=== PATIENT | female | born 1990 | race Caucasian/White ===

== ENCOUNTER → 2016-12-31 | Outpatient (CLI) | payer OTHER ==
[2017-01-03 02:55] LABS: CHLAMYDIA TRACH RNA*** NOT DETECTED (NOT DETECTED); GC (NEIS GONORRHOEAE)RNA** NOT DETECTED (NOT DETECTED)
== END | disposition home or self-care (01) ==
LOC: C.LABSPEC 17:27
PROVIDERS: ATTEND Physician Assistant
DX: Z01.419 Encounter for gynecological examination (general) (routine) without abnormal findings (principal)

== ENCOUNTER → 2016-12-31 | Outpatient (CLI) | payer OTHER | END | disposition home or self-care (01) | LOC: C.PAPS 09:51 | PROVIDERS: ATTEND Physician Assistant | DX: Z12.4 Encounter for screening for malignant neoplasm of cervix (principal) ==

== ENCOUNTER 2024-02-09 01:43 | Inpatient (IN) ==
--- NOTE | 2024-02-09 02:12 | Emergency Department Note ---
History of Present Illness General Chief complaint: Kidney Stone Stated complaint: KIDNEY STONES Time Seen by Provider: 02/09/24 02:06 History of Present Illness Maximum Pain Intensity: 8 This 33-year-old with a history of kidney stones and follows with Dr. Thao from urology presents ER complaining of severe left flank pain. She took Tylenol with no relief of symptoms. She had stents in the past. Patient denies chest pain, dyspnea, fevers, abdominal pain, urinary symptoms, rash. 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 Hx of congenital heart disease (1994) History of postoperative nausea and vomiting Ureteral calculus, left Surgical History S/P nasal surgery (2013) S/P wisdom tooth extraction (2016) S/P surgery for complex congenital heart disease (1994) Family History Grandmother (Maternal) Breast cancer Aunt Breast cancer Denies family history of Ovarian cancer Colorectal cancer Uterine cancer Social History Smoking Status: Never smoker Second Hand Exposure: No; Do You Dip or Chew Tobacco: No; Hx Alcohol Use: Yes Hx Substance Use: No Preferred Language: Bengali Communication Ability: Effective Pst Manager Required: No Beliefs That Will Affect Care: None Current Living Situation: Spouse Feels Safe at Home: Yes Assistive Devices: Glasses Review of Systems A total of 10 systems reviewed and were otherwise negative Physical Exam Vital Signs Vital Signs - 24 hr 02/09/24 01:43 02/09/24 01:53 Temperature 36.6 C Temperature Source Temporal Artery Scan Pulse Rate 77 Respiratory Effort / Characteristics Non-Labored Respiratory Depth Normal Blood Pressure 143/86 H Blood Pressure Mean 105 Pulse Oximetry 99 Oxygen Delivery Method Room Air Sepsis Recent Fever Within 48 Hours No Sepsis New/Unexplained Change in Mental Status No Sepsis Action Taken by Nursing No Action Required VITALS: Vitals are noted on the nurse's note and reviewed by myself. Vital signs stable. GENERAL: Pleasant female, in no acute distress, nondiaphoretic, well-developed well-nourished. SKIN: Capillary reflex less than 2 seconds. HEENT: Normocephalic. PERRLA. EOMI. Nares patent. Mucous membranes moist. Neck is supple without nuchal rigidity. HEART: Regular rate and rhythm LUNGS: Clear to auscultation bilaterally without wheezes, rales or rhonchi. No retractions or accessory muscle use. ABDOMEN: Positive bowel sounds x 4. Normal tympanic percussion. Soft, nontender, without masses or organomegaly. Li sign negative. No guarding or rebound tenderness. no CVA tenderness MUSCULOSKELETAL: No gross musculoskeletal defects. NEURO: Patient was alert and oriented to person place and time. No focal neurological deficits. Course Administered Medications Discontinued Medications Ceftriaxone Sodium (Rocephin) 2,000 mg in 50 mls @ 100 mls/hr IV NOW STA Stop: 02/09/24 03:12 Last Admin: 02/09/24 02:50 Dose: 100 mls/hr Documented By: SHERLY Ketorolac Tromethamine (Ketorolac Tromethamine 15 Mg/Ml Vial) 10 mg IV NOW STA Stop: 02/09/24 02:08 Last Admin: 02/09/24 02:18 Dose: 10 mg Documented By: SHERLY Ondansetron HCl (Ondansetron Inj 2 Mg/Ml 2 Ml Vial) 4 mg IV NOW STA Stop: 02/09/24 02:08 Last Admin: 02/09/24 02:18 Dose: 4 mg Documented By: SHERLY Medical Decision Making Medical Records Attestation: I reviewed the patient's medical records. Home Medications Current Medication List: was personally reviewed by me Laboratory Data Attestation: I reviewed the patient's lab results. 02/09/24 02:15 02/09/24 02:15 Lab Results 02/09/24 02/09/24 Range/Units 02:15 03:15 WBC 7.44 (4.8-10.8) K/ul RBC 5.06 (4.20-5.40) M/uL Hgb 14.9 (12.0-16.0) g/dl Hct 45.1 (37.0-47.0) % MCV 89.1 (80.0-100.0) fL MCH 29.4 (25.0-34.0) pg MCHC 33.0 (32.0-36.0) g/dL RDW Std Deviation 40.7 (36.4-46.3) fL RDW Coeff of Sunshine 12.5 (11.5-14.5) % Plt Count 312 (130-400) K/uL MPV 10.3 (9.4-12.4) fL Immature Gran % (Auto) 0.3 % Neut % (Auto) 76.9 % Lymph % (Auto) 15.7 % Wilkin % (Auto) 4.8 % Eos % (Auto) 1.9 % Baso % (Auto) 0.4 % Neut # (Auto) 5.72 (1.40-6.50) K/uL Lymph # (Auto) 1.17 L (1.20-3.40) K/uL Wilkin # (Auto) 0.36 (0.11-0.59) K/uL Eos # (Auto) 0.14 (0.00-0.50) K/uL Baso # (Auto) 0.03 (0.00-0.20) K/uL Immature Gran # (Auto) 0.02 (0.01-0.20) K/uL Sodium 137 (136-145) mmol/L Potassium 3.9 (3.5-5.1) mmol/L Chloride 106 (98-107) mmol/L Carbon Dioxide 25 (21-32) mmol/L Anion Gap 6 (3-11) BUN 14 (6-23) mg/dl Creatinine 0.66 (0.6-1.2) mg/dl Est Cr Clr Drug Dosing 88.6 ml/min eGFR 120.20 BUN/Creatinine Ratio 21.2 H (10-20) Glucose 151 H (70-99(Fasting)) mg/dl Lactate 1.1 (0.4-2.0) mmol/L Calcium 9.0 (8.6-10.3) mg/dl Total Bilirubin 0.3 (0.2-1.0) mg/dl AST 14 (13-39) U/L ALT 11 (7-52) U/L Alkaline Phosphatase 92 (34-104) U/L Total Protein 7.6 (6.0-8.3) gm/dl Albumin 4.4 (3.4-5.0) gm/dl Globulin 3.2 (2.5-4.0) gm/dl Albumin/Globulin Ratio 1.4 (0.9-2) Urine Color Yellow Urine Appearance Turbid A (Clear) Urine pH 5.5 (4.5-7.5) Ur Specific [place] 1.031 H (1.000-1.030) Urine Protein 1+ H (Negative) Urine Glucose (UA) Negative (Negative) Urine Ketones Trace H (Negative) Urine Blood 3+ H (Negative) Urine Nitrite Negative (Negative) Urine Bilirubin Negative (Negative) Urine Urobilinogen Negative (Negative) Ur Leukocyte Esterase 1+ H (Negative) Urine WBC (Auto) 21-50 H (0-5) /hpf Urine RBC (Auto) >20 H (0-2) /hpf U Hyaline Cast (Auto) 6-10 H (0-2) /lpf U Epithel Cells (Auto) 11-20 H (0-2) /hpf Urine Bacteria (Auto) 4+ H (None Seen) Calcium Oxalate Crystal Present A (None Prsent) POC Ur Test NEG (NEG) Imaging Data Attestation: I personally reviewed and interpreted this imaging study as follows: Radiologist's Impression: Abdomen/Pelvis CT 02/09/24 02:07 EXAM: CT abd pelvis wo con CLINICAL HISTORY: FLANK PAIN APPENDIX PRESENT -PREG EK INPATIENT TECHNIQUE: Non-contrast CT of the abdomen and pelvis was performed, with the following protocol: axial images, and reconstructed coronal and sagittal images. No intravenous contrast was administered. One of the following dose reduction techniques was utilized for this exam: Automated exposure control, adjustment of the mA and/or kV according to patient size, and use of iterative reconstruction. COMPARISON: 01/07/2024. FINDINGS: Abdomen: Liver: Normal in size, shape, and density. No focal lesions, cysts, or masses were identified. Gallbladder and Biliary System: The gallbladder is normal in size and shape. No wall thickening, pericholecystic fluid, or gallstones were identified. Pancreas: Pancreatic head, body, and tail are visualized and appear normal in size and density. No pancreatic masses or calcifications were noted. Spleen: Normal in size, shape, and density. No splenic lesions or masses were identified. Kidneys and Adrenal Glands: Moderate left kidney and upper ureter hydronephrosis due to a calculus measuring about 4mm lodged in the left upper-mid ureter junction with adjacent reaction ureter wall thickening. The left kidney is normal in size, shape, and position. Cortical thickness is within normal limits The right kidney is normal in size, shape, and position. Cortical thickness is within normal limits. No renal calculi or hydronephrosis. Adrenal glands are unremarkable. Appendix: Not seen. Pelvis: Urinary Bladder: Normal in contour and wall thickness. intraluminal lesions. A few tiny gravels were noted adjacent to the left ureter orifice Uterus: Normal in size and contour. No masses or abnormal thickening. Ovaries: Not well visualized but no gross abnormalities noted. Vagina: Normal in contour and wall thickness. Cervix: No evidence of mass or abnormal thickening. 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 No lymphadenopathy was noted. Bowel: The visualized bowel loops are normal in caliber and appearance. No evidence of bowel obstruction or wall thickening. The lower thorax: Cardiomegaly was noted Dilation of the azygos vein. Bones and Soft Tissues: Pelvic bones and soft tissues are unremarkable. No fractures or abnormal masses were identified. IMPRESSION: 1. Moderate left kidney and upper ureter hydronephrosis due to a calculus measuring about 4mm lodged in the left upper-mid ureter junction with adjacent reaction ureter wall thickening. (New findings in comparison with CT 01/07/2024) 2. A few tiny gravels were noted adjacent to the left ureter orifice in the UB. 3. The rest of the findings are stable in comparison with CT 01/07/2024 4. 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 [facility] ER was called at [phone] at 2:24 AM ROLL EDGE STITCHER HAND, 02/09/2024, and Nurse Ivone was informed regarding the presence of Significant Medical Findings on this report. Electronically signed by Amadou Sagastume 02-09-2024 03:32 AM MDM Narrative Prior records/ancillary studies reviewed. Triage Nursing notes reviewed. Additional history obtained from the family. The patient's history was concerning for flank pain. Differential diagnosis: Etiologies such as renal colic, appendicitis, diverticulitis, mesenteric ischemia, aortic pathology, infections, inflammatory bowel disease, PUD, biliary pathology, UTI, as well as others were entertained. Physical examination findings: As above. ER treatment provided: Toradol and Zofran were ordered Rocephin was ordered for UTI On reassessment the patient felt better. Diagnostic interpretation by me: The labs Independently Interpreted by myself revealed hyperglycemia without DKA urinalysis revealed concerns for UTI. Prior cultures were reviewed. neg hcg No worrisome leukocytosis neg lactic Imaging studies: CT was reviewed and read by radiology as above Consultation: A consultation was placed with the hospitalist. The case was discussed and diagnostics were reviewed. The patient was evaluated in the ER for further treatment. Urology was consulted and did evaluate the patient. The case was discussed. It appears that the patient has a kidney stone with an infected urine. Patient was started on antibiotics. Medicine and Urology were consulted and the case was discussed. She will be admitted to the medical service. By the evaluation outlined above emergent etiologies such as appendicitis, diverticulitis, mesenteric ischemia, aortic pathology, inflammatory bowel disease, PUD, biliary pathology, as well as others were deemed relatively unlikely. The pt informed about the findings as listed above. All questions were answered and pleased with the treatment. The chart was completed utilizing [employer] Speech voice recognition software. Grammatical errors, random word insertions, pronoun errors, and incomplete sentences are an occassional consequence of this system due to software limitations, ambient noise, and hardware issues. Any formal questions or concerns about the content, text, or information contained within the body of this dictation should be directly addressed to the physician assistant professor of spanish for clarification. Impression & Plan Renal colic on left side, Ureterolithiasis, Acute UTI Discharge Plan Visit Data Chief Complaint: Kidney Stone Stated Complaint: KIDNEY STONES ED Provider: Nadia Kee ED Midlevel Provider: Guillermina Patel Discharge Problem: Renal colic on left side, Ureterolithiasis, Acute UTI Patient Disposition: Admitted As Inpatient Condition: Good Discharge Instructions Krames/Other Patient Handouts: ED [facility] Kidney Stone Activity Restrictions/Additional Instructions: DO NOT drive, drink alcohol, operate machinery, or perform dangerous activities today. You were given medications in the ER that can affect your ability to safely function or operate a vehicle. Oxycodone Immediate Release (OxyIR) 5mg: Take 1 pill every four hours for pain. Avoid alcohol, operating machinery or dangerous equipment, working on ladders or roofs, DRIVING, or situations where being under the influence may be dangerous. It is recommended to use an [id number]-pwe-[id number] stool softener such as Colace, 100mg twice daily while taking this medication to avoid constipation. Zofran 4 mg: Take one every six hours as needed for nausea. Avoid alcohol, operating machinery or dangerous equipment, working on ladders or roofs, DRIVING, or situations where being under the influence may be dangerous. Ibuprofen(Motrin, Advil) may be used for fever or pain. Use 400mg every six hours as needed. Take with food. Avoid using more than 1600mg in a 24 hour period. Do not use 1600mg per day for more than three consecutive days without physician direction. Prolonged inappropriate use can lead to stomach upset or ulcers. This medication can be taken if you need to drive, work, or perform activities which may be dangerous when taking narcotic pain medication. (AND/OR) Acetaminophen(Tylenol) may be used for fever or pain. Use 1000mg every six hours as needed. Avoid using more than 3000mg in a 24 hour period. This medication can be taken if you need to drive, work, or perform activities which may be dangerous when taking narcotic pain medication. Flomax 0.4 mg: Take one tablet daily until the stone passes. This can cause hypotension. Take this at night. Strain your urine and collect all the stones or debris for the urologists. Rest and avoid strenuous activity until your stone passes and symptoms resolve. Drink plenty of fluids. Continue current medications. Return to the ER for worsening abdominal or back pain, vomiting, fevers, passing out, or as needed. Follow up with urology in 2-3 days, call for an appointment. Forms Stand Alone Forms: Work/School Release (ED), Important Visit Information Prescriptions Prescriptions: No Action No Known Home Medications Referrals Referrals: PCP,NO [Primary Care Provider] -
[2024-02-09] MEDS: ONDANSETRON INJ 2 MG/ML 2 ML VIAL IV STA (02:18)
[2024-02-09] MEDS: KETOROLAC TROMETHAMINE 15 MG/ML VIAL IV STA (02:18)
[2024-02-09 02:34] LABS: Basophils # (auto) 0.03 K/uL (0.00-0.20); Basophils % (auto) 0.4 %; Eosinophils # (auto) 0.14 K/uL (0.00-0.50); Eosinophils % (auto) 1.9 %; Hematocrit (blood only) 45.1 % (37.0-47.0); Hemoglobin 14.9 g/dl (12.0-16.0); Immature Granulocytes # (auto) 0.02 K/uL (0.01-0.20); Immature Granulocytes % (auto) 0.3 %; Lymphocytes # (auto) 1.17 K/uL (1.20-3.40); Lymphocytes % (auto) 15.7 %; Mean Corpuscular Hemoglobin 29.4 pg (25.0-34.0); Mean Corpuscular Volume 89.1 fL (80.0-100.0); Mean Platelet Volume 10.3 fL (9.4-12.4); Monocytes # (auto) 0.36 K/uL (0.11-0.59); Monocytes % (auto) 4.8 %; Neutrophils # (auto) 5.72 K/uL (1.40-6.50); Neutrophils % (auto) 76.9 %; Platelet Count 312 K/uL (130-400); RDW Coefficient of Variation 12.5 % (11.5-14.5); RDW Standard Deviation 40.7 fL (36.4-46.3); Red Blood Count 5.06 M/uL (4.20-5.40); White Blood Count 7.44 K/ul (4.8-10.8)
[2024-02-09 02:42] LABS: Appearance Urine Turbid (Clear); Bacteria Urine Automated 4+ (None Seen); Bilirubin Urine Negative (Negative); Blood Urine 3+ (Negative); Calcium Oxalate Crystals Urine Present (None Prsent); Color Urine Yellow; Glucose Urine UA Negative (Negative); Ketones Urine Trace (Negative); Leukocyte Esterase Urine 1+ (Negative); Nitrite Urine Negative (Negative); Protein Urine 1+ (Negative); RBC Urine Automated >20 /hpf (0-2); Specific Gravity Urine 1.031 (1.000-1.030); Urobilinogen Urine Negative (Negative); WBC Urine Automated 21-50 /hpf (0-5); pH Urine 5.5 (4.5-7.5)
[2024-02-09 02:50] LABS: Albumin Globulin Ratio 1.4 (0.9-2); Albumin Level 4.4 gm/dl (3.4-5.0); BUN Creatinine Ratio 21.2 (10-20); Bilirubin,Total 0.3 mg/dl (0.2-1.0); Creatinine Clr Calc Pharmacy 88.6 ml/min; Globulin 3.2 gm/dl (2.5-4.0); Potassium 3.9 mmol/L (3.5-5.1); Total Protein 7.6 gm/dl (6.0-8.3)
[2024-02-09] MEDS: cefTRIAXone SODIUM 2,000 MG/50 ML BAG IV STA (02:50)
--- NOTE | 2024-02-09 03:32 | CT Scan Report ---
EXAM: CT abd pelvis wo con CLINICAL HISTORY: FLANK PAIN APPENDIX PRESENT -PREG EK INPATIENT TECHNIQUE: Non-contrast CT of the abdomen and pelvis was performed, with the following protocol: axial images, and reconstructed coronal and sagittal images. No intravenous contrast was administered. One of the following dose reduction techniques was utilized for this exam: Automated exposure control, adjustment of the mA and/or kV according to patient size, and use of iterative reconstruction. COMPARISON: 01/07/2024. FINDINGS: Abdomen: Liver: Normal in size, shape, and density. No focal lesions, cysts, or masses were identified. Gallbladder and Biliary System: The gallbladder is normal in size and shape. No wall thickening, pericholecystic fluid, or gallstones were identified. Pancreas: Pancreatic head, body, and tail are visualized and appear normal in size and density. No pancreatic masses or calcifications were noted. Spleen: Normal in size, shape, and density. No splenic lesions or masses were identified. Kidneys and Adrenal Glands: Moderate left kidney and upper ureter hydronephrosis due to a calculus measuring about 4mm lodged in the left upper-mid ureter junction with adjacent reaction ureter wall thickening. The left kidney is normal in size, shape, and position. Cortical thickness is within normal limits The right kidney is normal in size, shape, and position. Cortical thickness is within normal limits. No renal calculi or hydronephrosis. Adrenal glands are unremarkable. Appendix: Not seen. Pelvis: Urinary Bladder: Normal in contour and wall thickness. intraluminal lesions. A few tiny gravels were noted adjacent to the left ureter orifice Uterus: Normal in size and contour. No masses or abnormal thickening. Ovaries: Not well visualized but no gross abnormalities noted. Vagina: Normal in contour and wall thickness. Cervix: No evidence of mass or abnormal thickening. 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 No lymphadenopathy was noted. Bowel: The visualized bowel loops are normal in caliber and appearance. No evidence of bowel obstruction or wall thickening. The lower thorax: Cardiomegaly was noted Dilation of the azygos vein. Bones and Soft Tissues: Pelvic bones and soft tissues are unremarkable. No fractures or abnormal masses were identified. IMPRESSION: 1. Moderate left kidney and upper ureter hydronephrosis due to a calculus measuring about 4mm lodged in the left upper-mid ureter junction with adjacent reaction ureter wall thickening. (New findings in comparison with CT 01/07/2024) 2. A few tiny gravels were noted adjacent to the left ureter orifice in the UB. 3. The rest of the findings are stable in comparison with CT 01/07/2024 4. 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 [facility]'s ER was called at [phone] at 2:24 AM SITE ENGINEER, 02/09/2024, and Nurse Wiseman was informed regarding the presence of Significant Medical Findings on this report. Electronically signed by Amadou Sagastume 02-09-2024 03:32 AM
--- NOTE | 2024-02-09 03:44 | Urology Consultation ---
<Statement entered by John Bernal MD - 02/09/24 06:13> I agree with the above documentation. 33 year-old female with left ureteral stone and concern for possible UTI. Please keep NPO for potential left ureteral stent placement on 02/09/24. Date of Consultation February 09, 2024 Assessment & Plan (1) Ureterolithiasis: I discussed with the treating clinician the emergency department the patient is being admitted on the hospitalist service: Would recommend providing analgesics Provide antiemetics if needed Provide gentle hydration with IV fluids Antibiotics in the form of Rocephin have been initiated due to concern for UTI. Appropriate cultures have been sent. Antibiotics be tailored based on culture results Keep patient n.p.o. Consider adding Flomax for expulsive therapy Patient be reevaluated the morning of 02/09/2024 and a determination will be made if she will require cystoscopic intervention At the present time she is normotensive without tachycardia or fever and is nontoxic-appearing, therefore we will attempt conservative measures as outlined above. In addition she does not have acute kidney injury additional recommendations be forthcoming based on her clinical course as unfolds History of Present Illness Reason for Consultation: Nephrolithiasis History of Present Illness 33-year-old female who presented the emergency department secondary left flank pain. Patient has a history of kidney stones requiring lithotripsy in the past with her most recent procedure being on 10/09/[address] Thao. At this time he performed a cystoscopy with a laser lithotripsy and insertion of left ureteral stent. Her current presentation began with left flank pain that began within the past 24 hours. The pain radiates somewhat to the front of her abdomen and she had associated nausea and vomiting. She denies any fevers, shakes, or chills. She does report dysuria without hematuria. This is a since arrival to the hospital patient has had labs and imaging which I reviewed. CT scan of the abdomen pelvis showed the patient had moderate left kidney hydronephrosis due to a 4 mm stone in the left upper to mid ureteral junction. Labs included a CBC were white blood cell count, hemoglobin, hematocrit, platelet count were normal. Chemistry profile showed sodium and potassium as well as the BUN and creatinine were normal. Urinalysis showed turbid urine which was negative for nitrites but had 1+ leukocyte Estrace, 20-50 white blood cells per high-power field, and 4+ bacteria. test was negative. At the time of my interview she was resting comfortably in bed and she was in no distress. Allergies Allergy/AdvReac Type Severity Reaction Status Date / Time No Known Allergies Allergy Verified 12/16/23 14:55 Home Medications Medication Instructions Recorded Confirmed Type No Known Home Medications 02/09/24 02/09/24 History Patient History Medical History Pulmonary valve anomaly per records Hx of congenital heart disease (1994) ASD and VSD / repaired History of postoperative nausea and vomiting after nasal surgery Ureteral calculus, left Surgical History S/P nasal surgery (2013) S/P wisdom tooth extraction (2016) S/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 Ivonne Marie in [place], last seen 2017; saw Cardio - Jackeline Robins/ Dr. Taveras-- 09/24/23 Family History Grandmother (Maternal) Breast cancer Aunt Breast cancer Maternal in 40s Denies family history of Ovarian cancer Colorectal cancer Uterine cancer Social History Smoking Status: Never smoker Second Hand Exposure: No; Do You Dip or Chew Tobacco: No; Hx Alcohol Use: Yes Hx Substance Use: No Preferred Language: Rwandan Communication Ability: Effective Front Office Help Required: No Beliefs That Will Affect Care: None Current Living Situation: Spouse Feels Safe at Home: Yes Assistive Devices: Glasses Review of Systems Review of Systems: All systems reviewed & are unremarkable except as noted in HPI & below Physical Exam Constitutional: WD/WN, vitals as above Eyes: Wears glasses ENMT: Ears: no hearing impairment and no external ear abnormality Mouth: no oropharynx abnormality Neck: trachea midline Respiratory: normal respiratory effort; no respiratory distress and no labored breathing Cardiovascular: Rate/Rhythm: regular rate and regular rhythm Gastrointestinal (Abdomen): Abdomen is soft and nondistended. There is no pain with palpation Musculoskeletal: No calf tenderness Skin: no rashes Neurologic: moves all extremities Psychiatric: A+Ox3, euthymic affect Genitourinary: At the time my exam there is no CVA tenderness with percussion Results & Data Vital Signs (Past 12 Hours) Vital Signs Temp Pulse Pulse Resp BP BP Pulse Ox 02/09/24 03:34 77 16 115/88 98 02/09/24 01:53 36.6 C 77 143/86 H 99 O2 Del Method 02/09/24 03:34 02/09/24 01:53 Room Air PG Care Time/CCT Total # of Minutes Spent Total Time Spent with Patient: Total time spent is greater than 50% in coordination of care (as documented) at patient's floor/unit and/or counseling patient: Coding Level of Care Code 65134 IN/OBS CONSULT LVL 5,80M Diagnoses Ureterolithiasis N20.1
[2024-02-09] MEDS: TAMSULOSIN HCL 0.4 MG CAP PO ONE (04:11)
--- NOTE | 2024-02-09 04:19 | History & Physical Report ---
Date of Service February 09, 2024 Assessment & Plan (1) Ureterolithiasis: Plan: 4 mm left sided stone with associated hydronephrosis resulting in complicated UTI. Patient started on CTX and urology consulted. Added Flomax to aid in passage of the stone. May need intervention with stent placement. Currently HDS without signs of sepsis. Counseled on avoiding dehydration as this can precipitate stone formation. May need further workup for frequent stones on an outpatient basis. NPO @ midnight, CTX Q24H gentle IVF, Flomax antiemetics with Zofran, Toradol for pain control urology consult - appreciate recs (2) Acute UTI: Plan: See above Plan Code status: full DVT ppx: low risk, ambulation, SCDs FENGI: NPO @ midnight, bolus 500 mL then gentle IVF Dispo: MedSurg History of Present Illness Chief Complaint: flank pain Primary Care Provider: MATTHIAS PCP 33 y/o here for evaluation of left sided back pain. Patient with intermittent left sided back pain over the last few weeks. Significantly worsened overnight. Patient trialed Tylenol without improvement. Abdominal and flank pain, nausea, and vomiting. Pain and burning with urination. Subjective fevers and some chills noted prior to presentation. No change in bowel habits. No noted hematemesis. Has a kidney stone history requiring lithotripsy and stent placement. Had a CT in December that did not show any stones. Follows with Dr. Thao office. Patient with significant pain and an infectious appearing UA. CT A&P with notable stone. Hospitalist service consulted for admission for infectious stone. Upon my interview patient relatively pain free. No more nausea or vomiting. Not feeling feverish at the time of my interview. Overall feeling significantly improved. 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 Ivonne Marie in [place], last seen 2017; saw Cardio - Jackeline Robins/ Dr. 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 Beliefs That Will Affect Care: None Current Living Situation: Spouse Feels Safe at Home: Yes Assistive Devices: None and Glasses Review of Systems 2 Review of Systems: See HPI Physical Exam 2 Physical Exam: Gen: well appearing patient in NAD HEENT: AT NC MMM Resp: CTAB no wheezing no increased work of breathing CV: RRR no m/r/g clinically well perfused Abd: soft, non-tender, non-distended mild CVA tenderness low on the left side MSK: no obvious deformities Skin: no rashes or bruising Neuro: alert and oriented Psych: appropriate mood and affect Results & Data Results & Data Vital Signs (Past 12 Hours) Vital Signs Temp Pulse Pulse Resp BP BP Pulse Ox 02/09/24 03:34 77 16 115/88 98 02/09/24 01:53 36.6 C 77 143/86 H 99 O2 Del Method 02/09/24 03:34 02/09/24 01:53 Room Air Laboratory Results 02/09/24 02:15 02/09/24 02:15 Diagnostic Findings Abdomen/Pelvis CT 02/09/24 02:07 FINDINGS: Abdomen: Liver: Normal in size, shape, and density. No focal lesions, cysts, or masses were identified. Gallbladder and Biliary System: The gallbladder is normal in size and shape. No wall thickening, pericholecystic fluid, or gallstones were identified. Pancreas: Pancreatic head, body, and tail are visualized and appear normal in size and density. No pancreatic masses or calcifications were noted. Spleen: Normal in size, shape, and density. No splenic lesions or masses were identified. Kidneys and Adrenal Glands: Moderate left kidney and upper ureter hydronephrosis due to a calculus measuring about 4mm lodged in the left upper-mid ureter junction with adjacent reaction ureter wall thickening. The left kidney is normal in size, shape, and position. Cortical thickness is within normal limits The right kidney is normal in size, shape, and position. Cortical thickness is within normal limits. No renal calculi or hydronephrosis. Adrenal glands are unremarkable. Appendix: Not seen. Pelvis: Urinary Bladder: Normal in contour and wall thickness. intraluminal lesions. A few tiny gravels were noted adjacent to the left ureter orifice Uterus: Normal in size and contour. No masses or abnormal thickening. Ovaries: Not well visualized but no gross abnormalities noted. Vagina: Normal in contour and wall thickness. Cervix: No evidence of mass or abnormal thickening. 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 No lymphadenopathy was noted. Bowel: The visualized bowel loops are normal in caliber and appearance. No evidence of bowel obstruction or wall thickening. The lower thorax: Cardiomegaly was noted. Dilation of the azygos vein. Bones and Soft Tissues: Pelvic bones and soft tissues are unremarkable. No fractures or abnormal masses were identified. IMPRESSION: 1. Moderate left kidney and upper ureter hydronephrosis due to a calculus measuring about 4mm lodged in the left upper-mid ureter junction with adjacent reaction ureter wall thickening. (New findings in comparison with CT 01/07/2024) 2. A few tiny gravels were noted adjacent to the left ureter orifice in the UB. 3. The rest of the findings are stable in comparison with CT 01/07/2024 4. 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 Code Status & VTE Plan VTE Prophylaxis Plan VTE Prophylaxis will be ordered: Yes Supervising Physician Co-Signing Physician Notes Attending addendum: I have physically seen this patient, have supervised the medical residents activities, and agree with the H&P unless as otherwise noted. Assessment and Plan: 4 mm left ureteral stone/left hydronephrosis/complicated urinary tract infection- NPO except essential medications Follow urine culture and sensitivity Empiric ceftriaxone 2 g IV daily Tamsulosin 0.4 mg p.o. daily Seen by urology in the ED Zofran 4 mg IV every 6 hours as needed Acetaminophen as needed for mild pain or fever Toradol as needed for moderate pain Resident Activity Tracking Resident Involvement: Resident Care Provided Care Provided: Adult Hospital Medicine
[2024-02-09] MEDS ORDERED: MELATONIN 3 MG TAB PO PRN (05:40)
[2024-02-09] MEDS ORDERED: ONDANSETRON INJ 2 MG/ML 2 ML VIAL IV PRN ×2 (05:40→11:23)
[2024-02-09] MEDS ORDERED: POLYETHYLENE (MIRALAX) 17 GM PACK PO PRN (05:40)
[2024-02-09] MEDS: SODIUM CHLORIDE 0.9% 500 ML IV ONE (06:12)
[2024-02-09] MEDS: SODIUM CHLORIDE 0.9% 1,000 ML IV SCH (06:45)
[2024-02-09] MEDS: KETOROLAC TROMETHAMINE 15 MG/ML VIAL IV PRN (06:47)
--- NOTE | 2024-02-09 06:48 | Billing Data ---
Date of Service February 09, 2024 Coding Level of Care Code 73787 INT INP/OBS CARE
--- NOTE | 2024-02-09 10:16 | Urology Progress Note ---
Date of Service February 09, 2024 Assessment & Plan (1) Ureterolithiasis: (2) Acute UTI: (3) Renal colic on left side: Plan 33 year-old female with a left ureteral stone and concern for possible UTI - Afebrile with stable vitals at present - Labs show no leukocytosis and normal renal function - UA concerning for infection, culture pending - Will plan to proceed to OR today for cystoscopy, left retrograde pyelogram, left ureteral stent placement - Risks and benefits to be reviewed with patient by Dr. Kurtz - Keep NPO - Covered with scheduled IV Ceftriaxone - Urology to follow. Admission and Anticipated Discharge Date Admission Date: February 09, 2024 Supervising Physician Co-Signing Physician Notes Discussed patient with MAXIMILIAN. Agree with plan. Discussed finding with patient's and recommended stent placement. Proceed to OR for cystoscopy, left retrograde pyelogram and left ureteral stent placement. Risk and benefits discussed. Consent obtained. Patient marked. Subjective Pt seen at bedside today. Awake and resting in bed on arrival. No acute distress. Has been NPO. Still with left sided pain. Denies f/c/n/v at present. Voiding without issue. Review of Systems Constitutional: as per Subjective / HPI Genitourinary: as per Subjective / HPI Physical Exam Constitutional: no acute distress Respiratory: no respiratory distress and no labored breathing Neurologic: moves all extremities and awake Psychiatric: A+Ox3, euthymic affect Results & Data Vital Signs (Past 12 Hours) Vital Signs Temp Pulse Pulse Resp BP BP Pulse Ox 02/09/24 05:55 36.5 C 65 16 117/80 100 02/09/24 05:15 02/09/24 05:00 76 16 118/69 98 02/09/24 03:34 77 16 115/88 98 02/09/24 01:53 36.6 C 77 143/86 H 99 O2 Del Method 02/09/24 05:55 Room Air 02/09/24 05:15 Room Air 02/09/24 05:00 Room Air 02/09/24 03:34 02/09/24 01:53 Room Air PG Care Time/CCT Total # of Minutes Spent Total Time Spent with Patient: Total time spent is greater than 50% in coordination of care (as documented) at patient's floor/unit and/or counseling patient: Coding Level of Care Code 78749 SUB INP/OBS CARE 2/35MIN Diagnoses Ureterolithiasis N20.1 Acute UTI N39.0 Renal colic on left side N23
[2024-02-09] MEDS ORDERED: LIDOCAINE 2% 2 ML VIAL/AMP(20MG/ML) INFIL ONE (10:50)
[2024-02-09] MEDS ORDERED: fentaNYL citrate PF 100 MCG/2 ML VIAL ONE (10:50)
[2024-02-09] MEDS ORDERED: PROPOFOL IV EMULSION 10 MG/ML 20 ML VIAL IV ONE (10:50)
[2024-02-09] MEDS ORDERED: MIDAZOLAM HCL 1 MG/ML 2ML VIAL ONE (10:51)
--- NOTE | 2024-02-09 11:22 | Anesthesiology Consultation ---
Date of Service February 09, 2024 Assessment & Plan (1) Encounter for pre-operative examination: Chart Review Chart Review: Patient NOT seen in Pre Admission Testing Consults Requested none History Surgery Operation Date: 02/09/24 12:50 Proposed Procedures p Cystoscopy, Left Retrograde Pyelogram, Stent Placement - Richard Kurtz MD Height/Weight Height: 4 ft 6 in Weight: 66.3 kg Allergies Allergy/AdvReac Type Severity Reaction Status Date / Time No Known Allergies Allergy Verified 12/16/23 14:55 Medications Home Medications Medication Instructions Recorded Confirmed Last Taken No Known Home Medications 02/09/24 02/09/24 Unknown Active Medications Generic Name Dose Route Start Last Admin Trade Name Freq PRN Reason Stop Dose Admin Sodium Chloride 1,000 mls @ 80 mls/hr 02/09/24 05:45 02/09/24 06:45 Nss IV 02/10/24 05:44 80 mls/hr .[id number] BRENDEN Administration Ketorolac Tromethamine 15 mg 02/09/24 05:40 02/09/24 06:47 Ketorolac Tromethamine 15 Mg/Ml Vial IV 02/14/24 05:39 15 mg Q6H PRN Administration Pain NPO Date Last Intake of Fluids: 02/08/24 Time Last Intake of Fluids: 23:00 Date Last Intake of Solids: 02/08/24 Time Last Intake of Solids: 23:00 Past Medical History Medical History 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 Ivonne Marie in [place], last seen 2016; saw Cardio - Jackeline Robins/ Dr. Taveras-- 09/24/23 Social History Smoking Status: Never smoker Do You Dip or Chew Tobacco: No Hx Alcohol Use: No alcohol intake frequency: holidays/special occasions only Hx Substance Use: No substance use type: does not use Physical Exam Vital Signs Last Vital Signs Temp 97.7 F 02/09/24 05:55 Pulse 65 02/09/24 05:55 Resp 16 02/09/24 05:55 BP 117/80 02/09/24 05:55 Pulse Ox 100 02/09/24 05:55 O2 Del Method Room Air 02/09/24 05:55 Testing Laboratory Results 02/09/24 02:15 02/09/24 02:15 Urine Color Yellow 02/09/24 02:15 Urine Appearance Turbid (Clear) A 02/09/24 02:15 Urine pH 5.5 (4.5-7.5) 02/09/24 02:15 Ur Specific [place] 1.031 (1.000-1.030) H 02/09/24 02:15 Urine Protein 1+ (Negative) H 02/09/24 02:15 Urine Glucose (UA) Negative (Negative) 02/09/24 02:15 Urine Ketones Trace (Negative) H 02/09/24 02:15 Urine Nitrite Negative (Negative) 02/09/24 02:15 Ur Leukocyte Esterase 1+ (Negative) H 02/09/24 02:15 Urine WBC (Auto) 21-50 /hpf (0-5) H 02/09/24 02:15 Urine RBC (Auto) >20 /hpf (0-2) H 02/09/24 02:15 U Hyaline Cast (Auto) 6-10 /lpf (0-2) H 02/09/24 02:15 U Epithel Cells (Auto) 11-20 /hpf (0-2) H 02/09/24 02:15 Urine Bacteria (Auto) 4+ (None Seen) H 02/09/24 02:15 02/09/24 02:15 POC Ur Test NEG
[2024-02-09] MEDS ORDERED: fentaNYL citrate PF 100 MCG/2 ML VIAL IV PRN (11:23)
[2024-02-09] MEDS ORDERED: ePHEDrine sulfate 50 MG/ML AMP IV PRN (11:23)
[2024-02-09] MEDS ORDERED: ATROPINE SULFATE 0.1 MG/ML 10ML SYR IV PRN (11:23)
[2024-02-09] MEDS: DIATRIZOATE MEGLUMINE 30% 100ML VIAL INSTIL ONE (11:50)
--- NOTE | 2024-02-09 11:52 | Operative Report ---
PG Post Operative Report Pre & Post Diagnosis Operation Date: 02/09/24 12:50 Pre-Op Diagnosis: Kidney Stones Post-Op Diagnosis: Kidney Stones I identified the patient and participated in the time-out.: Yes Procedure Operation Date: 02/09/24 12:50 Actual Procedures p Cystoscopy, Left Retrograde Pyelogram with radiographic interpretation, Stent Placement(Left) - Richard Kurtz MD Surgeon Richard Kurtz MD Manager Military None Estimated Blood Loss 0 Findings See Below Mild left hydronephrosis, stent in appropriate position Specimens None Drains 6 Irish by 24 cm left ureteral stone Anesthesia Type MAC Complications none Indications 33-year-old female with a left proximal obstructing ureteral calculus and concern for UTI Description of Procedure After informed consent was obtained, the patient was transported operative suite. MAC anesthesia was induced. The patient was placed in dorsal lithotomy position prepped and draped in a sterile fashion. They received preoperative ceftriaxone for antibiotic prophylaxis. An appropriate surgical timeout was performed. A 22 Irish rigid scope was inserted per urethra into the bladder. Roger cystoscopy revealed no stones or lesions. I turned my attention the left ureteral orifice and intubated this with a 5 Irish open-ended catheter. A left retrograde pyelogram was shot which showed mild left hydronephrosis. A sensor wire was advanced into the kidney and confirmed fluoroscopically. A 6 Irish by 24 cm left ureteral stent was deployed with a good proximal coil in the renal pelvis and a good distal coil noted in the bladder. These were confirmed fluoroscopically and under direct visualization, respectively. The bladder was emptied and the scope was removed. This concluded the end of the case. All counts were correct at the end of the case. I was present, scrubbed, and actively participated for the entirety of the procedure. I attest to the content of the Intraoperative Record and any orders documented therein. Any exceptions are noted below.
--- NOTE | 2024-02-09 12:28 | Anesthesiology Progress Note ---
Date of Service February 09, 2024 Anesthesia Post Procedure Vital Signs Vital Signs: Temp Pulse Pulse Pulse Resp BP BP 02/09/24 12:15 94 H 12 119/83 02/09/24 12:05 94 H 21 129/86 02/09/24 11:57 97.9 F 105 H 15 108/87 02/09/24 05:55 97.7 F 65 16 117/80 02/09/24 05:15 02/09/24 05:00 76 16 118/69 02/09/24 03:34 77 16 115/88 02/09/24 01:53 97.9 F 77 143/86 H Pulse Ox O2 Del Method O2 Flow Rate 02/09/24 12:15 96 Room Air 02/09/24 12:05 99 Nasal Cannula 2 02/09/24 11:57 98 Nasal Cannula 4 02/09/24 05:55 100 Room Air 02/09/24 05:15 Room Air 02/09/24 05:00 98 Room Air 02/09/24 03:34 98 02/09/24 01:53 99 Room Air Pain Intensity Left Lower Flank: Pain Intensity: 6 Lower Abdomen: Pain Intensity: 3 Transfer of Care Handoff Completed per policy Notes Mental Status: alert / awake / arousable and participated in evaluation Patient Amnestic to Procedure: Yes Nausea / Vomiting: adequately controlled Pain: adequately controlled Airway Patency, RR, SpO2: stable & adequate BP & HR: stable & adequate Hydration State: stable & adequate Anesthetic Complications: no major complications apparent and Pt Satisfied with anesthetic care
--- NOTE | 2024-02-09 13:59 | Fluoroscopy Report ---
FL retrograde includes kub CLINICAL HISTORY: ADD ON STENT PLACEMENT LEFT COMPARISON STUDY: CT of the abdomen and pelvis performed earlier today. FLUOROSCOPY TIME: 13.2 seconds. Ka,r: 2.66 mGy FLUOROSCOPIC IMAGES: 1 FINDINGS: Fluoroscopy was provided during left retrograde pyelogram with ureteral stent placement. IMPRESSION: Fluoroscopy provided during left retrograde pyelogram and ureteral stent placement. ACT 112: Negative or not required by law. Electronically signed by: Ruddy Salcido M.D. 02/09/2024 1:57 PM
--- NOTE | 2024-02-09 14:00 | Discharge Summary ---
Discharge Summary Date of Service February 09, 2024 Principal Dx & Hospital Course #1 = Principal Diagnosis (1) Ureterolithiasis: Patient presented to the ED on 02/09/2024 with symptoms of left flank pain. CT w/ 4mm left sided stone, hydronephrosis + urinalysis CBC/BMP stable. s/p 1 dose Rocephin given in ED - transitioned to cefpodoxime 200mg twice daily x 7 days at home follow up urine culture results, will contact patient if abx needs changed. Urology completed cystoscopy 02/08 w/ stent placement patient to follow up outpatient for stent removal Zofran prn nausea vomiting Tylenol prn pain/fever Pyridium prn bladder pain x 3 days. Advised to continue home Flomax prescription with stent in place. (2) Acute UTI: See above Admission HPI Per Admitting Provider 33 y/o here for evaluation of left sided back pain. Patient with intermittent left sided back pain over the last few weeks. Significantly worsened overnight. Patient trialed Tylenol without improvement. Abdominal and flank pain, nausea, and vomiting. Pain and burning with urination. Subjective fevers and some chills noted prior to presentation. No change in bowel habits. No noted hematemesis. Has a kidney stone history requiring lithotripsy and stent placement. Had a CT in December that did not show any stones. Follows with Dr. Thao office. Patient with significant pain and an infectious appearing UA. CT A&P with notable stone. Hospitalist service consulted for admission for infectious stone. Upon my interview patient relatively pain free. No more nausea or vomiting. Not feeling feverish at the time of my interview. Overall feeling significantly improved. Discharge Exam Constitutional WD/WN, vitals as above Eyes PERRL, conjunctivae normal, anicteric sclerae Respiratory breathing unlabored Cardiovascular well perfused Psychiatric A+Ox3, euthymic affect Discharge Plan Discharge Items Patient Disposition: Home - Self-Care Reason For Visit: INFECTED KIDNEY STONES Discharge Diagnosis: nephrolithiasis, urinary tract infection Condition on Discharge: Good Activity: Resume your previous activity Non-emergency contact: Primary Care Provider and Urologist Call non-emergency contact if: you have any medication questions, your symptoms worsen and you have a fever Follow-up/Referrals: PCP,NO [Primary Care Provider] - Diet: Regular Addtl Attending Provider Instructions: Ms. Bush, You were recently hospitalized for experiencing a kidney stone along with a urinary tract infection. You underwent a cystoscopy today, 02/[address] Kurtz who placed a stent. Please see recommendations below regarding your discharge. 1. Please follow up with urology as scheduled. 2. Please take Cefpodoxime 200mg twice daily for the next 7 days. Your first dose will be this evening 02/08 Please take with food to avoid an upset stomach. 3. Please take Flomax while you have stent placed. You mentioned you had this prescription at home. 4. Please use tylenol as needed for pain or fever. 5. Please use Zofran as needed for nausea or vomiting. 6. Please use Pyridium as needed for bladder pain over the next 3 days. Please do not use longer than 3 days. If you develop any worsening urinary symptoms, fevers, or chills please report to the ER for further care. Sincerely, Karen Horvath PA-C Pending Studies at Discharge: Yes Studies:: Urine culture Stand-Alone Forms: My [facility] FAGUO, Smoking Cessation Medications and DC Order Prescriptions: New tamsulosin 0.4 mg Capsule 0.4 mg PO QAM Qty: 30 0RF cefpodoxime 200 mg tablet 200 mg PO BID Qty: 14 0RF Rx Instructions: must administer with a meal/food ondansetron 4 mg tablet,disintegrating 4 mg PO Q6H PRN (Reason: nausea and vomiting) Qty: 10 0RF phenazopyridine [Pyridium] 200 mg tablet 200 mg PO Q8H PRN (Reason: pain) Qty: 14 0RF Rx Instructions: Please take 1 tablet every 8 hours as needed for 3 days Discharge Orders: Discharge Order (Routine); Ordered 02/09/24 Ordered By: Karen Horvath Admission Data Admit Date/Time: 02/09/24 04:19 Attending Provider: Donny Muse Admit Provider: Susy Estevez Primary Care Provider: PCP,NO Other Providers: Richardson Higuera; Vasu Thao Hospital Stay Data Consultations 02/09/24 03:17 ED Decision to Admit Stat 02/09/24 05:40 Consult Urology Routine Procedures Performed Operation Date: 02/09/24 12:50 Actual Procedures p Cystoscopy, Left Retrograde Pyelogram, Stent Placement(Left) - Richard Kurtz MD Diagnostic Imagining Performed 02/09/24 FL retrograde includes kub Routine 02/09/24 02:07 CT stones [CT abd pelvis wo con] Stat Pending Results Patient Have Any Pending Studies at Discharge: Yes Discharge Instructions Given to Patient (Per Discharging Provider) Ms. Bush, You were recently hospitalized for experiencing a kidney stone along with a urinary tract infection. You underwent a cystoscopy today, 02/[address] Kurtz who placed a stent. Please see recommendations below regarding your discharge. 1. Please follow up with urology as scheduled. 2. Please take Cefpodoxime 200mg twice daily for the next 7 days. Your first dose will be this evening 02/08 Please take with food to avoid an upset stomach. 3. Please take Flomax while you have stent placed. You mentioned you had this prescription at home. 4. Please use tylenol as needed for pain or fever. 5. Please use Zofran as needed for nausea or vomiting. 6. Please use Pyridium as needed for bladder pain over the next 3 days. Please do not use longer than 3 days. If you develop any worsening urinary symptoms, fevers, or chills please report to the ER for further care. Sincerely, Karen Horvath PA-C Total Time Total Time Spent Total Time Spent (In Minutes): 35 Total Time Includes: Examination of the Patient, Discharge Planning, Medication Reconciliation and Communication With Other Providers Coding Level of Care Code 13471 INP/OBS DISCH >30 MIN Diagnoses Ureterolithiasis N20.1 Acute UTI N39.0
[2024-02-09 14:11] VITALS: RESP 16
[2024-02-09 15:06] VITALS: BP 111/71; PULSE 89; TEMP 98.6; O2SAT 97
[2024-02-10] MEDS ORDERED: cefTRIAXone SODIUM 2,000 MG/50 ML BAG IV SCH (03:00)
[2024-02-10] MEDS ORDERED: TAMSULOSIN HCL 0.4 MG CAP PO SCH (09:00)
== END 2024-02-09 15:32 | disposition home or self-care (01) | DRG 694 ==
LOC: ED 01:43 → SUATTDRO 04:19 → 3W 04:19

== ENCOUNTER 2024-10-14 07:03 | Inpatient (IN) ==
--- NOTE | 2024-09-30 16:12 | Anesthesiology Consultation ---
Date of Service September 30, 2024 Assessment & Plan (1) Encounter for pre-operative examination: Chart Review Chart Review: Acceptable Risk for Surgery and Patient NOT seen in Pre Admission Testing - Discussed with Dr. Mota- will make OB aware that patient is optimized for vaginal labor and delivery and - will leave to OB and patient discretion's with how to proceed with delivery. -Infectious Disease screening: Per PAT nursing assessment on . No known infectious disease contacts in past 10 days or current infectious disease symptoms. No recent travel outside the country. - Optimization note sent to [facility] lens polisher hand (Dr Ivonne Marie) with ECHO results inquiring if patient needs further work up/follow up or if patient can proceed with as scheduled at [facility] under SAB. Per cardio response 09/27/24= "Patient's echo reviewed from 08/19/2024. Echo report is normal. Based on this echo and patient's prior normal echo here in May, there are no cardiac restrictions regarding her OB care at delivery. She has cardiac clearance for any needed procedures and anesthesia." Patient seen by cardiology 05/19/2024 = seen for overdue cardiology follow- up/currently . 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 Had regular follow-up without any evidence of residual ventral septal defect. 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 Etiology of pulmonary artery dilation is unknown. At her last visit in 2016 main pulmonary artery measured 32 mm in diametermildly dilated. Patient presents today as she is 18 weeks . OB is asking for guidance for cardiac needs for her delivery. OB told patient she could be considered for due to cardiac history. Echo from 05/19/2024 reviewed. Patient had mild dilation on main pulmonary artery on 2017 echo but area is not well- visualized on today's echo however it does not stand out as being dilated. P aidan has soft innocent systolic murmur along the pulmonary artery. Her murmur is unchanged from previous exams. Because of her congenital heart disease, she is at risk for having child with congenital heart diseaseat risk may be 10-15%. Would consider maternal genetic counseling and testing. Recommend ECHO at 18-22 weeks. Based on today's normal echo, there are no cardiac special needs for delivery in my opinionwill however ask colleagues if they have any thoughts. Recommend cardiology visit at 28 weeks with repeat ECHO to reevaluate CA and RV function to help formulate final delivery plan. Cardiology clearance given for any needed procedures and anesthesia. There are no restrictions from a cardiac standpoint. Has cardiac clearance for normal vaginal labor and delivery. Recommend follow-up in 10 weeks with repeat echo that can be local if preferred with cardiology at the delivery hospital Patient seen by Cardiology at [facility] 07/08/24= Patient referred for assessment and echocardiography as new patient due to her having a personal history of congenital heart disease. 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 Patient had 2 operations1 at 6 months of life and the other at approximately 4 years old.Baby's heart appears structurally normal. No further follow-up in the cardiology clinic is necessary prior to delivery unless new concern or question arises. Do not see any contraindication from a cardiac standpoint to her delivering at [facility] as she is currently planning. Pediatric cardiology team at [facility] could be consulted at any time should there be any concern about the baby's cardiovascular status. Consults Requested none ASA ASA3 Proposed Anesthesia Anesthesia Type: Spinal Risk / Benefits Reviewed With: PT / POA / Parent / Guardian, Accepts Plan and Informed Consent Obtained History Surgery Operation Date: 10/14/24 08:50 Proposed Procedures p Section - Ramesh Dial MD Height/Weight Height: 4 ft 6 in Weight: 78.018 kg Allergies Allergy/AdvReac Type Severity Reaction Status Date / Time cefpodoxime AdvReac Mild Diarrhea Verified 10/13/24 09:56 Medications Home Medications Medication Instructions Recorded Confirmed Last Taken vits no.133-ferrous 1 tab PO HS 09/30/24 10/14/24 10/13/24 18:00 fumarate 28 mg-folic acid 800 mcg tablet () Past Medical History Medical History Hx of congenital heart disease (1994) Hx ASD and VSD > repaired VSD repaired during infancy ASD repaired at six months of age PONV (postoperative nausea and vomiting) 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 Ivonne Marie/[facility] Renal calculi Snoring - chronic - no witnessed apnea. No hx of sleep study Ureterolithiasis - Initially scheduled for laser litho 02/17/24- procedure cancelled due to finding out she was - No renal calculi identified on 07/08/24 renal u/s; mild right side/flank pain- chronic and stable Exercise / Class Metabolic Activity II 4-5 Yardwork/Stairs/Walk up hill Past Family History Family History Grandmother (Maternal) Breast cancer Aunt Breast cancer Maternal in 40s Other No family history of adverse response to anesthesia Denies family history of Ovarian cancer Colorectal cancer Uterine cancer Past Surgical History Surgical History History of cystoscopy Hx of lithotripsy S/P nasal surgery (2013) S/P surgery for complex congenital heart disease (1994) ASD & VSD repair (age 6 months and 4 years) S/P ureteral stent placement S/P wisdom tooth extraction (2016) Past Anesthesia History No Hx of Anesthesia Complications and No Family Hx of Anesthesia Complications History of PONV No Hx of PONV and No Hx of Motion Sickness Social History Smoking Status: Never smoker Do You Dip or Chew Tobacco: No Hx Alcohol Use: No alcohol intake frequency: holidays/special occasions only Hx Substance Use: No substance use type: does not use Physical Exam Vital Signs Last Vital Signs Temp 37.1 C 10/14/24 11:17 Pulse 68 10/14/24 14:07 Resp 20 10/14/24 11:17 BP 101/64 10/14/24 14:07 Pulse Ox 94 10/14/24 14:06 ENMT Mouth: no dentition abnormality Thyromental Distance: > or= 3.5 Finger Breadths Mallampati Class: II Neck normal visual inspection Respiratory normal respiratory effort Auscultation: lungs clear to auscultation bilaterally Cardiovascular Rate/Rhythm: regular rate and regular rhythm Psychiatric Orientation: alert Testing Laboratory Results 10/14/24 07:42 Blood Type O Negative 10/14/24 07:39 Antibody Screen NEGATIVE 10/14/24 07:39 Electrocardiogram Date: 05/19/24 NSR at 82bpm. Incomplete RBBB. Poor R wave progression in lateral precordial leads due to lead placement. When compared to EKG from Dec 29, 2016- no significant change was found per cardio Echocardiogram Date: 08/19/24 ECHO 08/19/24= LV systolic function is normal EF 55-60%. No RWMA Normal LV wall thickness There is no evidence of ASD but resolutions does not allow assessment for a PFO No significant valvular pathology RV is not well visualized PV not well visualized. Great vessels: aortic root and proximal ascending aorta are normal sized. Pulmonary is not well visualized No prior study for comparison Echocardiogram 05/19/2024 = Extremely suboptimal imaging windows available from patient. Interpretation accuracy limited by study quality. Normal biventricular size and systolic function. No subpulmonary or pulmonary valvular stenosis on Doppler, not well-seen on 2D images MPA and branch PA not well-visualized Negative agitated saline study with no evidence of atrial [id number] shunting. Patient descending aorta with no coarctation No obvious pericardial effusion No ventricular shunt Other Testing Renal Ultrasound 07/08/24= No hydronephrosis. No renal calculi identified by sonography.
[2024-10-14] MEDS ORDERED: LIDOCAINE 1% LOCAL 20 ML VIAL INFIL PRN (07:42)
[2024-10-14 08:22] LABS: Hematocrit (blood only) 37.3 % (37.0-47.0); Hemoglobin 12.3 g/dl (12.0-16.0); Immature Granulocytes # (auto) 0.10 K/uL (0.01-0.20); Immature Granulocytes % (auto) 1.0 %; Mean Corpuscular Hemoglobin 28.9 pg (25.0-34.0); Mean Corpuscular Volume 87.8 fL (80.0-100.0); Platelet Count 277 K/uL (130-400); RDW Standard Deviation 44.3 fL (36.4-46.3); Red Blood Count 4.25 M/uL (4.20-5.40); White Blood Count 10.41 K/ul (4.8-10.8)
--- NOTE | 2024-10-14 09:45 | History & Physical Report ---
Date of Service October 14, 2024 Assessment & Plan (1) Encounter for pre-operative examination: Plan: Vielka is a 34-year-old currently at 39 weeks 4 days gestational age presents for elective primary . Patient is opting for due to history of congenital cardiac defect status postrepair. She has been cleared by cardiology but prefers to proceed with . Consent forms reviewed and signed in clinic yesterday. (2) Obesity affecting : (3) Supervision of normal first : (4) Need for rhogam due to Rh negative mother: (5) Hx of congenital heart disease: Admission and Anticipated Discharge Date Admission Date: October 14, 2024 History of Present Illness Primary Care Provider: NO PCP Vielka is a 34-year-old currently at 39 weeks 4 days gestational age presents for elective primary section. Patient has a history of congenital cardiac defect status postrepair and is preferring to proceed with hysterectomy due to this history. Has been cleared by cardiology for labor if preferred which patient has declined. The procedure reviewed in detail including risks and benefits. Postoperative expectations and precautions reviewed questions answered. Consent forms reviewed and signed in clinic yesterday. Patient with hx congenital heart defect ASD/VSD repair, dilated main pulmonary artery sees cards at [place]--has a visit in May. Echo ~22-24 weeks 07/06/24 @ [facility] Anesthesia states cards ok for vaginal delivery C/S SCHEDULED FOR 10/14/[address] GOODMAN ANESTHESIA CONSULT (EXAM & ADVISE) SCHEDULED FOR 08/09/2024 AT 3:15PM - done Obesity (BMI between 35-39 @ beginning of )--36 Patient is 4ft 6 in *Growth US @ 32 wks *Weekly NSTs @ 36wks Neg pap/ HPV+ *Repeat in 1 year Need for Rhogam due to RH Negative Mother - completed 07/21 OB Labs: Antibody Screen NEGATIVE 07/26/24 Hgb 11.7 g/dL (11.7-15.5) 07/20/24 Hct 34.9 % (35.0-45.0) L 07/20/24 MCV 90.7 fL (80.0-100.0) 04/22/24 Plt Count 283 Thousand/uL (140-400) 04/22/24 Rubella IgG Antibody 1.57 Index 05/28/24 Treponema pallidum Ab Negative (Negative) 07/20/24 Hep Bs Antigen TNP 04/01/24 Hepatitis C Ab (EIA) NON-REACTIVE (NON-REACTIVE) 04/22/24 HIV (1&2) Ag & Ab Conf NON-REACTIVE (NON-REACTIVE) 04/22/24 Glucose 1 Hr 50 gm 100 mg/dL (<135) 07/20/24 OB Optional Labs: Chlamydia trachomatis RNA Not Detected (NotDetected) 03/29/24 Neisseria gonorrhoeae RNA Not Detected (NotDetected) 03/29/24 Labs Reviewed: Declines genetics--mln Allergies Allergy/AdvReac Type Severity Reaction Status Date / Time cefpodoxime AdvReac Mild Diarrhea Verified 10/13/24 09:56 Home Medications Medication Instructions Recorded Confirmed Type vits no.133-ferrous 1 tab PO HS 09/30/24 10/14/24 History fumarate 28 mg-folic acid 800 mcg tablet () Patient History Medical History Hx of congenital heart disease (1994) Hx ASD and VSD > repaired VSD repaired during infancy ASD repaired at six months of age PONV (postoperative nausea and vomiting) 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 Ivonne Marie/[facility] Renal calculi Snoring - chronic - no witnessed apnea. No hx of sleep study Ureterolithiasis - Initially scheduled for laser litho 02/17/24- procedure cancelled due to finding out she was - No renal calculi identified on 07/08/24 renal u/s; mild right side/flank pain- chronic and stable Surgical History History of cystoscopy Hx of lithotripsy S/P nasal surgery (2013) S/P surgery for complex congenital heart disease (1994) ASD & VSD repair (age 6 months and 4 years) S/P ureteral stent placement S/P wisdom tooth extraction (2016) Family History Grandmother (Maternal) Breast cancer Aunt Breast cancer Maternal in 40s Other No family history of adverse response to anesthesia Denies family history of Ovarian cancer Colorectal cancer Uterine cancer Social History Smoking Status: Never smoker Second Hand Exposure: No; Do You Dip or Chew Tobacco: No; Tobacco Cessation Education Requested by Patient: No Hx Alcohol Use: No Hx Substance Use: No Preferred Language: Persian Communication Ability: Effective Member Of The Legislative Assembly Required: No Beliefs That Will Affect Care: None marital status: marital status details: Mio Bush (30) [phone] Current Living Situation: Spouse Current Living Situation Comment: lives with spouse, cats-spouse changing litter current occupational status: employed 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 Other Information That Helps Us Care for You: No Feels Safe at Home: Yes Safety Concerns: Feels Safe At This Time Assistive Devices: Glasses Physical Exam Genitourinary: OB Exam Monitor Tracing: + external FHT monitor used, + external uterine monitor used, + category I and + normal FHT variability Results & Data Vital Signs (Past 12 Hours) Vital Signs Temp Pulse Resp BP 10/14/24 08:34 84 10/14/24 08:34 127/64 10/14/24 08:21 79 10/14/24 08:21 171/86 H 10/14/24 08:05 81 10/14/24 08:05 159/91 H 10/14/24 07:45 68 10/14/24 07:45 153/93 H 10/14/24 07:36 36.7 C 68 20 153/93 H 10/14/24 07:10 20 10/14/24 07:10 36.7 C 20 10/14/24 07:08 77 156/96 H Coding Level of Care Code None Diagnoses Encounter for pre-operative examination Z01.818 Other obesity affecting in third trimester O99.213; E66.89 Trimester: third trimester Obesity type affecting : other obesity Encounter for supervision of normal first in third trimester Z34.03 Trimester: third trimester Need for rhogam due to Rh negative mother Z29.13 Hx of congenital heart disease Z87.74 (2) Obesity affecting Trimester: third trimester Obesity type affecting : other obesity Qualified Code(s): O99.213 - Obesity complicating , third trimester; E66.89 - Other obesity not elsewhere classified (3) Supervision of normal first Trimester: third trimester Qualified Code(s): Z34.03 - Encounter for supervision of normal first , third trimester
[2024-10-14] MEDS ORDERED: ONDANSETRON INJ 2 MG/ML 2 ML VIAL ONE (11:10)
[2024-10-14] MEDS ORDERED: OXYTOCIN 10 UNITS/ML VIAL ONE (11:10)
[2024-10-14] MEDS ORDERED: PHENYLEPHRINE HCL 25 MG/250 ML NSS IV ONE (11:10)
[2024-10-14] MEDS ORDERED: MoRPHine SULFATE PF 1 MG/ML 10 ML AMP/VIAL ONE (11:10)
[2024-10-14] MEDS: ACETAMINOPHEN 500 MG TAB PO SCH (11:26)
[2024-10-14] MEDS: LACTATED RINGER'S 1,000 ML IV SCH ×3 (11:31→17:13)
[2024-10-14] MEDS: CITRIC ACID/SODIUM CITRATE 15 ML UDC PO SCH (11:42)
[2024-10-14] MEDS: ACETAMINOPHEN 500 MG TAB PO STA (11:42)
[2024-10-14] MEDS: ceFAZolin 3000MG 3,000 MG/72.5 ML BAG IV SCH (12:48)
[2024-10-14] MEDS ORDERED: BENZOCAINE 20% SPRY 85 APPLN/85 GM CAN EXT PRN (13:53)
[2024-10-14] MEDS ORDERED: MAGNESIUM HYDROXIDE SUSP 30 ML UDC PO PRN (13:53)
[2024-10-14] MEDS ORDERED: HYDROCORTISONE ACETATE 25 MG SUPP PR PRN (13:53)
--- NOTE | 2024-10-14 14:05 | Operative Report ---
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 Upon presentation she was identified. Spinal anesthesia obtained and patient was prepped and draped in the normal sterile fashion. Preprocedure timeout was performed and the case was initiated. A Pfannenstiel incision was made with a knife. This was carried down to underlying fascia with the Bovie and blunt dissection. Fascia was nicked at the midline with a knife and was extended bluntly and with Meléndez scissors bilaterally. Abdomen was then entered bluntly and placed on stretch to provide adequate room for delivery. was noted to be in breech presentation as suspected and a low transverse uterine incision was made with a knife. The uterine cavity was then entered bluntly and placed on stretch to provide adequate room for delivery. The was noted to be in cephalic position and head delivered without difficulty quickly followed by shoulders and body. did not have good tone upon delivery and the cord was clamped and cut and taken to the waiting nursery staff. Cord blood and cord segment obtained and attention turned to deliver the placenta which delivered intact with gentle uterine massage and cord traction. Uterus was exteriorized and several passes made to remove any remaining membranes with a dry lap. Uterus was wrapped in a wet lap and the hysterotomy was reapproximated with 0 Vicryl in continuous running lock stitch. A second imbricating layer was then performed. The posterior cul-de-sac cleaned of clots and debris's. Hysterotomy was also noted to be hemostatic. Uterus returned to maternal abdomen and right left paracolic gutters cleaned of clots and debris's and hysterotomy reinspected. The muscle, fascia and subcutaneous layers were inspected and noted to be hemostatic. Fascia was reapproximated with 0 Vicryl in continuous running stitch. Subcutaneous layer reapproximated in 2 layers with 2-0 plain. Skin reapproximated 3-0 Vicryl in a subcuticular stitch. Dermabond placed on top. Needle sponge in instrument counts correct at the completion of the case. Both mother and stable in the immediate postdelivery timeframe. No complications noted and blood loss per QBL in chart. I attest to the content of the Intraoperative Record and any orders documented therein. Any exceptions are noted below. OB Procedure Charges [id number]
[2024-10-14] MEDS ORDERED: NALOXONE HCL 0.08 MG in SYRINGE 1.8 ML IV PRN ×2 (14:12→14:50)
[2024-10-14] MEDS ORDERED: diphenhydrAMINE 50 MG/ML VIAL IV PRN ×2 (14:12→14:50)
[2024-10-14] MEDS ORDERED: MEPERIDINE HCL 25 MG/ML CARP/VIAL IV PRN ×2 (14:12→14:50)
[2024-10-14] MEDS ORDERED: NALOXONE HCL 1 MG in SODIUM CHLORIDE 0.9% 1,000 ML IV PRN ×2 (14:12→14:50)
[2024-10-14] MEDS ORDERED: NALOXONE HCL 0.4 MG/1 ML VIAL/CARP IV PRN ×2 (14:12→14:50)
[2024-10-14] MEDS ORDERED: HYDROmorphone INJ 0.5 MG/0.5 ML SYR IV PRN ×2 (14:12→14:50)
[2024-10-14] MEDS ORDERED: LACTATED RINGER'S 500 ML IV PRN ×2 (14:12→14:50)
[2024-10-14] MEDS ORDERED: MoRPHine SULFATE 2 MG/ML CARP IV PRN ×2 (14:12→14:50)
[2024-10-14] MEDS ORDERED: DC INTRASPINAL MORPHINE SCH ×2 (14:15→15:00)
[2024-10-14] MEDS ORDERED: NO NARCOTICS OR SEDATIVES SCH ×2 (14:15→15:00)
[2024-10-14] MEDS: KETOROLAC 30 MG/ML VIAL IV SCH (14:48)
[2024-10-14] MEDS ORDERED: ONDANSETRON INJ 2 MG/ML 2 ML VIAL IV PRN (14:50)
[2024-10-14] MEDS ORDERED: MoRPHine SULFATE PF 1 MG/ML 10 ML AMP/VIAL INT SPINAL ONE (14:50)
[2024-10-14] MEDS ORDERED: PROMETHAZINE 6.25 MG/50.25 ML BAG IV PRN (14:50)
[2024-10-14] MEDS ORDERED: NALBUPHINE HCL INJ 10 MG/ML AMP IV PRN (14:50)
[2024-10-14] MEDS ORDERED: SODIUM CHLORIDE 0.9% 1,000 ML IV SCH (15:00)
[2024-10-14] MEDS: ONDANSETRON INJ 2 MG/ML 2 ML VIAL IV PRN (15:03)
[2024-10-14] MEDS: NALBUPHINE HCL INJ 10 MG/ML AMP IV PRN (15:35)
--- NOTE | 2024-10-14 16:17 | Anesthesiology Progress Note ---
Date of Service October 14, 2024 Anesthesia Post Procedure Vital Signs Vital Signs: Temp Pulse Resp BP Pulse Ox 10/14/24 16:11 100 10/14/24 16:11 72 10/14/24 16:06 94 10/14/24 16:06 67 10/14/24 16:02 93 10/14/24 16:02 72 10/14/24 16:01 96 10/14/24 16:01 67 10/14/24 15:57 94 10/14/24 15:57 69 10/14/24 15:56 95 10/14/24 15:56 71 10/14/24 15:51 96 10/14/24 15:51 85 10/14/24 15:51 148/66 H 10/14/24 15:46 98 10/14/24 15:46 76 10/14/24 15:45 36.6 C 85 16 148/66 H 96 10/14/24 15:45 36.6 C 16 10/14/24 15:41 97 10/14/24 15:41 83 10/14/24 15:41 86 10/14/24 15:41 145/68 H 10/14/24 15:37 93 10/14/24 15:37 73 10/14/24 15:36 98 10/14/24 15:36 91 H 10/14/24 15:32 100 H 10/14/24 15:32 138/73 10/14/24 15:31 96 10/14/24 15:31 99 H 10/14/24 15:30 20 10/14/24 15:27 94 10/14/24 15:27 67 10/14/24 15:26 93 10/14/24 15:26 74 10/14/24 15:21 95 10/14/24 15:21 64 10/14/24 15:21 126/67 10/14/24 15:16 95 10/14/24 15:16 59 L 10/14/24 15:11 97 10/14/24 15:11 63 10/14/24 15:11 68 10/14/24 15:11 143/63 H 10/14/24 15:10 94 10/14/24 15:10 74 10/14/24 15:06 97 10/14/24 15:06 106 H 10/14/24 15:01 97 10/14/24 15:01 60 10/14/24 15:01 127/60 10/14/24 15:00 16 10/14/24 15:00 91 10/14/24 15:00 72 10/14/24 14:56 96 10/14/24 14:56 61 10/14/24 14:51 96 10/14/24 14:51 87 10/14/24 14:51 135/63 10/14/24 14:50 20 10/14/24 14:50 93 10/14/24 14:50 90 10/14/24 14:46 96 10/14/24 14:46 72 10/14/24 14:41 98 10/14/24 14:41 65 10/14/24 14:41 127/60 10/14/24 14:40 16 10/14/24 14:36 97 10/14/24 14:36 69 10/14/24 14:31 95 10/14/24 14:31 83 10/14/24 14:31 85 10/14/24 14:31 106/58 L 10/14/24 14:30 16 10/14/24 14:27 93 10/14/24 14:27 67 10/14/24 14:26 96 10/14/24 14:26 65 10/14/24 14:22 61 10/14/24 14:22 99/55 L 10/14/24 14:21 99 10/14/24 14:21 91 H 10/14/24 14:20 20 10/14/24 14:16 97 10/14/24 14:16 96 H 10/14/24 14:12 57 L 10/14/24 14:12 101/55 L 10/14/24 14:11 96 10/14/24 14:11 58 L 10/14/24 14:10 20 10/14/24 14:07 68 10/14/24 14:07 101/64 10/14/24 14:06 94 10/14/24 14:06 83 10/14/24 14:05 92 10/14/24 14:05 74 10/14/24 14:02 86 10/14/24 14:02 99/58 L 10/14/24 14:01 98 10/14/24 14:01 66 10/14/24 14:00 36.8 C 66 20 98 10/14/24 11:52 79 10/14/24 11:52 172/104 H 10/14/24 11:38 104 H 10/14/24 11:38 157/74 H 10/14/24 11:37 87 10/14/24 11:37 170/93 H 10/14/24 11:17 20 10/14/24 11:17 37.1 C 20 10/14/24 11:17 75 10/14/24 11:17 169/91 H 10/14/24 11:16 75 10/14/24 11:16 181/90 H 10/14/24 08:34 84 10/14/24 08:34 127/64 10/14/24 08:21 79 10/14/24 08:21 171/86 H 10/14/24 08:05 81 10/14/24 08:05 159/91 H 10/14/24 07:45 68 10/14/24 07:45 153/93 H 10/14/24 07:36 36.7 C 68 20 153/93 H 10/14/24 07:10 20 10/14/24 07:10 36.7 C 20 10/14/24 07:08 77 156/96 H Pain Intensity Bilateral Abdomen: Pain Intensity: 5 Transfer of Care Handoff Completed per policy Notes Mental Status: alert / awake / arousable Nausea / Vomiting: adequately controlled Pain: adequately controlled Airway Patency, RR, SpO2: stable & adequate BP & HR: stable & adequate Hydration State: stable & adequate Neuraxial Anesthesia: was administered and sensory block is resolving Anesthetic Complications: no major complications apparent and Pt Satisfied with anesthetic care
[2024-10-14] MEDS: DIPHTHER/TETAN/PERTUS Vaccine (Tdap, Adol/Adult) 0.5mL IM ONE (17:13)
[2024-10-14] MEDS: SIMETHICONE 80 MG CHEW PO SCH (17:13)
--- NOTE | 2024-10-14 17:31 | Hospitalist Consultation ---
Date of Consultation October 14, 2024 Assessment & Plan (1) PONV (postoperative nausea and vomiting): (2) Hx of congenital heart disease: Stuart Vora is a 34F with a PMHx of ASD/VSD repair, dilated main pulmonary artery who presented to the hospital for C section with Dr. Dial. Hospital medicine consulted for "cardiopulmonary symptoms post delivery Post-Op Nausea and Vomiting | Shortness of breath | Hx of congenital heart abnormality EKG with PVCs and incomplete RBB which is consistent to priors Wheezing on exam - check CXR and COVID/flu/RSV swab Check CBC BMP and Mag Can consider TSH, echo or nebs if symptoms do not improve. Thank you for allowing us to participate in the care of this patient, please reach out with any questions or concerns. Hospital Medicine will continue to Follow. Supervising Physician Co-Signing Physician Notes PA Supervision Note: I personally saw and examined the patient. 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 Had significant nausea and vomiting during and postop from her and was noted to have frequent PVCs in the recovery area. Her blood pressures have been elevated since the day prior to admission but no other signs or symptoms of preeclampsia. I discussed her care with the attending OB physician, Dr. Dial. Patient reports feeling tired but otherwise feels totally fine. She denies heart palpitations or shortness of breath, no cough. No fevers. History and ROS otherwise reviewed as above O- Vitals reviewed Gen: AAOx3, NAD, short stature HEENT: Anicteric sclerae, EOMI CV: RRR no mgr nl S1S2 Pulm: Positive rhonchi left middle and upper lung khan Ext: 1+ pitting edema of the legs bilaterally Skin: No rashes, warm/dry Neuro: Full strength throughout CBC, BMP, magnesium, chest x-ray image personally reviewed A/H-[id number]-old female with history of congenital heart disease status post repair here from with frequent PVCs after having nausea and vomiting. - Frequent PVCs seem to be resolving-continue telemetry monitoring - Magnesium low-give 2 g of IV magnesium sulfate - Discussed with OB about giving labetalol for hypotension-this is okay from a cardiac and pulmonary standpoint - If develops fever, would consider treatment for aspiration pneumonitis - Hospital service will continue to follow History of Present Illness Reason for Consultation: Cardiopulmonary symptoms post delivery Requesting Physician: Dr. Dial Attending Physician: Ramesh Dial MD History of Present Illness Vielak is a 34F with a PMHx of ASD/VSD repair, dilated main pulmonary artery who presented to the hospital for C section with Dr. Dial. Hospital medicine consulted for "cardiopulmonary symptoms post delivery". Post operatively found to have significant nausea and vomiting and found to have PVCs on the monitor. no prior problems with anesthesia, some vomiting but no cardiac or pulmonary problems. 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 had elevated BP yesterday and hypertensive today. No protein in urine. Does have peripheral edema No h/o thyroid problems. Has felt well recently aside from usual symptoms. No chest pain. did not eat or drink prior to . no appetite at this time dizzy with repositioning in bed. vomiting since delivery but no vomiting or dry heaving during my exam. main complaint is feeling tired right now telemetry with NSR 60-80s with PVCs Allergies Allergy/AdvReac Type Severity Reaction Status Date / Time cefpodoxime AdvReac Mild Diarrhea Verified 10/13/24 09:56 Home Medications Medication Instructions Recorded Confirmed Type vits no.133-ferrous 1 tab PO HS 09/30/24 10/14/24 History fumarate 28 mg-folic acid 800 mcg tablet () Patient History Medical History (Updated 10/14/24 @ 16:44 by Nara Motta RN) Deafness in right ear Snoring - chronic - no witnessed apnea. 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 Ivonne Marie[facility] Hx of congenital heart disease (1994) Hx ASD and VSD > repaired VSD repaired during infancy ASD repaired at six months of age Surgical History S/P ureteral stent placement Hx of lithotripsy History of cystoscopy S/P nasal surgery (2013) S/P wisdom tooth extraction (2016) S/P surgery for complex congenital heart disease (1994) ASD & VSD repair (age 6 months and 4 years) Family History Grandmother (Maternal) Breast cancer Aunt Breast cancer Maternal in 40s Other No family history of adverse response to anesthesia Denies family history of Ovarian cancer Colorectal cancer Uterine cancer Social History Smoking Status: Never smoker Second Hand Exposure: No; Do You Dip or Chew Tobacco: No; Tobacco Cessation Education Requested by Patient: No Hx Alcohol Use: No Hx Substance Use: No Preferred Language: [place] Communication Ability: Effective Torpedo Worker Required: No Beliefs That Will Affect Care: None marital status: marital status details: Mio Bush (30) [phone] Current Living Situation: Spouse Current Living Situation Comment: lives with spouse, cats-spouse changing litter current occupational status: employed 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 Other Information That Helps Us Care for You: No Feels Safe at Home: Yes Safety Concerns: Feels Safe At This Time Assistive Devices: Glasses Review of Systems Review of Systems: All systems reviewed & are unremarkable except as noted in Subjective Physical Exam Physical Exam: General: NAD, VS as above Resp: normal respiratory effort, inspiratory and expiratory wheezing throughout CV: RRR, no murmur, Abd: normal bowel sounds, non tender, no hepatosplenomegaly Extremities: Moves all extremities, + edema Neuro: A&O x3, Skin: intact, no lesions noted, non-diaphoretic Results & Data Results & Data Vital Signs (Past 12 Hours) Vital Signs Temp Pulse Resp BP Pulse Ox 10/14/24 17:16 100 10/14/24 17:16 90 10/14/24 17:11 100 10/14/24 17:11 83 10/14/24 17:06 99 10/14/24 17:06 91 H 10/14/24 17:01 99 10/14/24 17:01 86 10/14/24 16:56 99 10/14/24 16:56 74 10/14/24 16:51 100 10/14/24 16:51 73 10/14/24 16:49 86 L 10/14/24 16:49 93 H 10/14/24 16:46 100 10/14/24 16:46 99 H 10/14/24 16:45 15 10/14/24 16:41 99 10/14/24 16:41 79 10/14/24 16:36 99 10/14/24 16:36 94 H 10/14/24 16:31 99 10/14/24 16:31 98 H 10/14/24 16:26 99 10/14/24 16:26 101 H 10/14/24 16:22 79 10/14/24 16:22 184/64 H 10/14/24 16:21 100 10/14/24 16:21 78 10/14/24 16:16 99 10/14/24 16:16 72 10/14/24 16:15 16 10/14/24 16:11 100 10/14/24 16:11 72 10/14/24 16:06 94 10/14/24 16:06 67 10/14/24 16:02 93 10/14/24 16:02 72 10/14/24 16:01 96 10/14/24 16:01 67 10/14/24 15:57 94 10/14/24 15:57 69 10/14/24 15:56 95 10/14/24 15:56 71 10/14/24 15:51 96 10/14/24 15:51 85 10/14/24 15:51 148/66 H 10/14/24 15:46 98 10/14/24 15:46 76 10/14/24 15:45 97.9 F 85 16 148/66 H 96 10/14/24 15:45 97.9 F 16 10/14/24 15:41 97 10/14/24 15:41 83 10/14/24 15:41 86 10/14/24 15:41 145/68 H 10/14/24 15:37 93 10/14/24 15:37 73 10/14/24 15:36 98 10/14/24 15:36 91 H 10/14/24 15:32 100 H 10/14/24 15:32 138/73 10/14/24 15:31 96 10/14/24 15:31 99 H 10/14/24 15:30 20 10/14/24 15:27 94 10/14/24 15:27 67 10/14/24 15:26 93 10/14/24 15:26 74 10/14/24 15:21 95 10/14/24 15:21 64 10/14/24 15:21 126/67 10/14/24 15:16 95 10/14/24 15:16 59 L 10/14/24 15:11 97 10/14/24 15:11 63 10/14/24 15:11 68 10/14/24 15:11 143/63 H 10/14/24 15:10 94 10/14/24 15:10 74 10/14/24 15:06 97 10/14/24 15:06 106 H 10/14/24 15:01 97 10/14/24 15:01 60 10/14/24 15:01 127/60 10/14/24 15:00 16 10/14/24 15:00 91 10/14/24 15:00 72 10/14/24 14:56 96 10/14/24 14:56 61 10/14/24 14:51 96 10/14/24 14:51 87 10/14/24 14:51 135/63 10/14/24 14:50 20 10/14/24 14:50 93 10/14/24 14:50 90 10/14/24 14:46 96 10/14/24 14:46 72 10/14/24 14:41 98 10/14/24 14:41 65 10/14/24 14:41 127/60 10/14/24 14:40 16 10/14/24 14:36 97 10/14/24 14:36 69 10/14/24 14:31 95 10/14/24 14:31 83 10/14/24 14:31 85 10/14/24 14:31 106/58 L 10/14/24 14:30 16 10/14/24 14:27 93 10/14/24 14:27 67 10/14/24 14:26 96 10/14/24 14:26 65 10/14/24 14:22 61 10/14/24 14:22 99/55 L 10/14/24 14:21 99 10/14/24 14:21 91 H 10/14/24 14:20 20 10/14/24 14:16 97 10/14/24 14:16 96 H 10/14/24 14:12 57 L 10/14/24 14:12 101/55 L 10/14/24 14:11 96 10/14/24 14:11 58 L 10/14/24 14:10 20 10/14/24 14:07 68 10/14/24 14:07 101/64 10/14/24 14:06 94 10/14/24 14:06 83 10/14/24 14:05 92 10/14/24 14:05 74 10/14/24 14:02 86 10/14/24 14:02 99/58 L 10/14/24 14:01 98 10/14/24 14:01 66 10/14/24 14:00 98.2 F 66 20 98 10/14/24 11:52 79 10/14/24 11:52 172/104 H 10/14/24 11:38 104 H 10/14/24 11:38 157/74 H 10/14/24 11:37 87 10/14/24 11:37 170/93 H 10/14/24 11:17 20 10/14/24 11:17 98.8 F 20 10/14/24 11:17 75 10/14/24 11:17 169/91 H 10/14/24 11:16 75 10/14/24 11:16 181/90 H 10/14/24 08:34 84 10/14/24 08:34 127/64 10/14/24 08:21 79 10/14/24 08:21 171/86 H 10/14/24 08:05 81 10/14/24 08:05 159/91 H 10/14/24 07:45 68 10/14/24 07:45 153/93 H 07/17/25 07:36 98.1 F 68 20 153/93 H 10/14/24 07:10 20 10/14/24 07:10 98.1 F 20 10/14/24 07:08 77 156/96 H Laboratory Results CBC reviewed PG Care Time/CCT Total # of Minutes Spent Total Time Spent with Patient: Total time spent is greater than 50% in coordination of care (as documented) at patient's floor/unit and/or counseling patient: Coding Level of Care Code 47773 IN/OBS CONSULT LVL 3,45M Diagnoses PONV (postoperative nausea and vomiting) R11.2; Z98.890 Hx of congenital heart disease Z87.74
[2024-10-14] MEDS: OXYTOCIN 20 UNITS/LR 1,002 ML IV SCH (17:33)
--- NOTE | 2024-10-14 18:28 | XRay Report ---
Clinical History: Shortness of breath Technique: A frontal view of the chest was obtained Comparison is made to the prior examination dated 09/24/2023 Findings: There are no confluent pulmonary infiltrates. The heart is enlarged. No pleural effusion or pneumothorax is seen. There is no definite pulmonary nodule. No fracture is noted. Sternal wires are present Impression: Cardiomegaly Electronically signed by Sathya Hensley 10-14-2024 6:27 PM
[2024-10-14] MEDS: MoRPHine SULFATE PF 1 MG/ML 10 ML AMP/VIAL INT SPINAL ONE (18:50)
[2024-10-14] MEDS: SODIUM CHLORIDE 0.9% 1,000 ML IV SCH (18:50)
[2024-10-14 18:55] LABS: Influenza A virus by PCR Negative (Neg); Influenza B virus by PCR Negative (Neg); SARS CoV2 RNA(COVID-19) Ceph NEGATIVE (Negative)
[2024-10-14 19:03] LABS: Hematocrit (blood only) 32.1 % (37.0-47.0); Hemoglobin 10.5 g/dl (12.0-16.0); Immature Granulocytes # (auto) 0.10 K/uL (0.01-0.20); Immature Granulocytes % (auto) 0.7 %; Mean Corpuscular Hemoglobin 28.7 pg (25.0-34.0); Mean Corpuscular Volume 87.7 fL (80.0-100.0); Platelet Count 229 K/uL (130-400); RDW Standard Deviation 44.2 fL (36.4-46.3); Red Blood Count 3.66 M/uL (4.20-5.40); White Blood Count 15.33 K/ul (4.8-10.8)
[2024-10-14 19:20] LABS: Anion Gap 8.0 (3-11); Blood Urea Nitrogen 10.0 mg/dl (6-23); Calcium 8.3 mg/dl (8.6-10.3); Carbon Dioxide 21.0 mmol/L (21-32); Chloride 107.0 mmol/L (98-107); Creatinine Clr Calc Pharmacy 100.1 ml/min; Glucose 124.0 mg/dl (70-99(Fasting)); Magnesium 1.6 mg/dl (1.7-2.4); Potassium 3.9 mmol/L (3.5-5.1); Sodium 136.0 mmol/L (136-145)
[2024-10-14] MEDS: LACTATED RINGER'S 1,000 ML IV PRN (19:32)
--- NOTE | 2024-10-14 19:49 | Obstetrical Progress Note ---
Date of Service October 14, 2024 Assessment & Plan Admission and Anticipated Discharge Date Admission Date: October 14, 2024 Subjective Presented to bedside to discuss elevated blood pressures now back within the severe range. On review of chart it was noted that she has had intermittent elevated blood pressures throughout the day and has had several periods of day where they have been within the severe range. I discussed the blood pressure results and discussed the diagnosis of preeclampsia with severe features. I discussed option for magnesium for seizure prevention and answered questions related to preeclampsia and treatment. Is agreeable to starting magnesium which we will start per regular protocol. Discussed potential need to treat blood pressures but will continue to monitor for now. Results & Data Vital Signs (Past 12 Hours) Vital Signs Temp Pulse Resp BP Pulse Ox 10/14/24 19:46 100 10/14/24 19:46 75 10/14/24 19:41 96 10/14/24 19:41 101 H 10/14/24 19:39 101 H 10/14/24 19:39 156/86 H 10/14/24 19:37 93 10/14/24 19:37 96 H 10/14/24 19:36 95 10/14/24 19:36 88 10/14/24 19:31 97 10/14/24 19:31 100 H 10/14/24 19:26 96 10/14/24 19:26 105 H 10/14/24 19:26 100 H 10/14/24 19:26 171/86 H 10/14/24 19:24 94 10/14/24 19:24 104 H 10/14/24 19:22 106 H 10/14/24 19:22 178/94 H 10/14/24 19:21 96 10/14/24 19:21 105 H 10/14/24 19:19 92 10/14/24 19:19 110 H 10/14/24 19:16 96 10/14/24 19:16 111 H 10/14/24 19:11 100 10/14/24 19:11 104 H 10/14/24 19:06 99 10/14/24 19:06 85 10/14/24 19:01 98 10/14/24 19:01 99 H 10/14/24 18:56 99 10/14/24 18:56 82 10/14/24 18:52 79 10/14/24 18:52 151/75 H 10/14/24 18:51 98 10/14/24 18:51 104 H 10/14/24 18:46 98 10/14/24 18:46 95 H 10/14/24 18:41 98 10/14/24 18:41 91 H 10/14/24 18:39 92 10/14/24 18:39 86 10/14/24 18:36 91 10/14/24 18:36 92 H 10/14/24 18:33 93 10/14/24 18:33 82 10/14/24 18:31 94 10/14/24 18:31 80 10/14/24 18:27 94 10/14/24 18:27 98 H 10/14/24 18:26 94 10/14/24 18:26 87 10/14/24 18:22 92 10/14/24 18:22 100 H 10/14/24 18:21 96 10/14/24 18:21 93 H 10/14/24 18:16 100 10/14/24 18:16 98 H 10/14/24 18:11 99 10/14/24 18:11 110 H 10/14/24 18:06 99 10/14/24 18:06 81 10/14/24 18:01 100 10/14/24 18:01 83 10/14/24 17:56 99 10/14/24 17:56 93 H 10/14/24 17:52 81 10/14/24 17:52 141/64 H 10/14/24 17:51 99 10/14/24 17:51 91 H 10/14/24 17:46 100 10/14/24 17:46 99 H 10/14/24 17:41 99 10/14/24 17:41 108 H 10/14/24 17:36 99 10/14/24 17:36 92 H 10/14/24 17:31 100 10/14/24 17:31 78 10/14/24 17:26 100 10/14/24 17:26 90 10/14/24 17:22 101 H 10/14/24 17:22 141/96 H 10/14/24 17:21 99 10/14/24 17:21 79 10/14/24 17:16 100 10/14/24 17:16 90 10/14/24 17:15 16 99 10/14/24 17:11 100 10/14/24 17:11 83 10/14/24 17:06 99 10/14/24 17:06 91 H 10/14/24 17:01 99 10/14/24 17:01 86 10/14/24 16:56 99 10/14/24 16:56 74 10/14/24 16:51 100 10/14/24 16:51 73 10/14/24 16:49 86 L 10/14/24 16:49 93 H 10/14/24 16:46 100 10/14/24 16:46 99 H 10/14/24 16:45 15 10/14/24 16:41 99 10/14/24 16:41 79 10/14/24 16:36 99 10/14/24 16:36 94 H 10/14/24 16:31 99 10/14/24 16:31 98 H 10/14/24 16:26 99 10/14/24 16:26 101 H 10/14/24 16:22 79 10/14/24 16:22 184/64 H 10/14/24 16:21 100 10/14/24 16:21 78 10/14/24 16:16 99 10/14/24 16:16 72 10/14/24 16:15 16 10/14/24 16:11 100 10/14/24 16:11 72 10/14/24 16:06 94 10/14/24 16:06 67 10/14/24 16:02 93 10/14/24 16:02 72 10/14/24 16:01 96 10/14/24 16:01 67 10/14/24 15:57 94 10/14/24 15:57 69 10/14/24 15:56 95 10/14/24 15:56 71 10/14/24 15:51 96 10/14/24 15:51 85 10/14/24 15:51 148/66 H 10/14/24 15:46 98 10/14/24 15:46 76 10/14/24 15:45 36.6 C 85 16 148/66 H 96 10/14/24 15:45 36.6 C 16 10/14/24 15:41 97 10/14/24 15:41 83 10/14/24 15:41 86 10/14/24 15:41 145/68 H 10/14/24 15:37 93 10/14/24 15:37 73 10/14/24 15:36 98 10/14/24 15:36 91 H 10/14/24 15:32 100 H 10/14/24 15:32 138/73 10/14/24 15:31 96 10/14/24 15:31 99 H 10/14/24 15:30 20 10/14/24 15:27 94 10/14/24 15:27 67 10/14/24 15:26 93 10/14/24 15:26 74 10/14/24 15:21 95 10/14/24 15:21 64 10/14/24 15:21 126/67 10/14/24 15:16 95 10/14/24 15:16 59 L 10/14/24 15:11 97 10/14/24 15:11 63 10/14/24 15:11 68 10/14/24 15:11 143/63 H 10/14/24 15:10 94 10/14/24 15:10 74 10/14/24 15:06 97 10/14/24 15:06 106 H 10/14/24 15:01 97 10/14/24 15:01 60 10/14/24 15:01 127/60 10/14/24 15:00 16 10/14/24 15:00 91 10/14/24 15:00 72 10/14/24 14:56 96 10/14/24 14:56 61 10/14/24 14:51 96 10/14/24 14:51 87 10/14/24 14:51 135/63 10/14/24 14:50 20 10/14/24 14:50 93 10/14/24 14:50 90 10/14/24 14:46 96 10/14/24 14:46 72 10/14/24 14:41 98 10/14/24 14:41 65 10/14/24 14:41 127/60 10/14/24 14:40 16 10/14/24 14:36 97 10/14/24 14:36 69 10/14/24 14:31 95 10/14/24 14:31 83 10/14/24 14:31 85 10/14/24 14:31 106/58 L 10/14/24 14:30 16 10/14/24 14:27 93 10/14/24 14:27 67 10/14/24 14:26 96 10/14/24 14:26 65 10/14/24 14:22 61 10/14/24 14:22 99/55 L 10/14/24 14:21 99 10/14/24 14:21 91 H 10/14/24 14:20 20 10/14/24 14:16 97 10/14/24 14:16 96 H 10/14/24 14:12 57 L 10/14/24 14:12 101/55 L 10/14/24 14:11 96 10/14/24 14:11 58 L 10/14/24 14:10 20 10/14/24 14:07 68 10/14/24 14:07 101/64 10/14/24 14:06 94 10/14/24 14:06 83 10/14/24 14:05 92 10/14/24 14:05 74 10/14/24 14:02 86 10/14/24 14:02 99/58 L 10/14/24 14:01 98 10/14/24 14:01 66 10/14/24 14:00 36.8 C 66 20 98 10/14/24 11:52 79 10/14/24 11:52 172/104 H 10/14/24 11:38 104 H 10/14/24 11:38 157/74 H 10/14/24 11:37 87 10/14/24 11:37 170/93 H 10/14/24 11:17 20 10/14/24 11:17 37.1 C 20 10/14/24 11:17 75 10/14/24 11:17 169/91 H 10/14/24 11:16 75 10/14/24 11:16 181/90 H 10/14/24 08:34 84 10/14/24 08:34 127/64 10/14/24 08:21 79 10/14/24 08:21 171/86 H 10/14/24 08:05 81 10/14/24 08:05 159/91 H PG Care Time/CCT Total # of Minutes Spent Total Time Spent with Patient: Total time spent is greater than 50% in coordination of care (as documented) at patient's floor/unit and/or counseling patient: Coding Level of Care Code None
[2024-10-14 19:59] LABS: Alanine Aminotransferase 9.0 U/L (7-52)
[2024-10-14] MEDS: MAGNESIUM SULFATE / WTR 40 GM/1,000 ML BAG IV SCH (20:06)
[2024-10-14] MEDS: MAG SULFATE 4GM BOLUS FROM BAG IV ONE (20:09)
[2024-10-14 20:15] LABS: Thyroid Stimulating Hormone 3.174 uIu/ml (0.300-4.500)
[2024-10-14] MEDS: PROMETHAZINE 6.25 MG/50.25 ML BAG IV PRN (20:39)
[2024-10-14] MEDS: ACETAMINOPHEN 325 MG TAB PO SCH (21:03)
[2024-10-14] MEDS: MAGNESIUM SULFATE / D5W 1 GM/100 ML BAG IV SCH (21:08)
[2024-10-14] MEDS: DOCUSATE SODIUM 100 MG CAP PO SCH (21:09)
[2024-10-14] MEDS: LABETALOL HCL 200 MG TAB PO SCH (21:57)
[2024-10-15] MEDS: CALCIUM GLUCONATE 1000 MG/60 ML NSS IV ONE (00:07)
[2024-10-15] MEDS ORDERED: SODIUM CHLORIDE 0.9% 100 ML IV PRN (00:50)
[2024-10-15 02:56] LABS: Anion Gap 3.0 (3-11); Blood Urea Nitrogen 9.0 mg/dl (6-23); Calcium 7.4 mg/dl (8.6-10.3); Carbon Dioxide 26.0 mmol/L (21-32); Chloride 105.0 mmol/L (98-107); Creatinine Clr Calc Pharmacy 86.5 ml/min; Glucose 117.0 mg/dl (70-99(Fasting)); Potassium 4.7 mmol/L (3.5-5.1); Sodium 134.0 mmol/L (136-145)
[2024-10-15] MEDS ORDERED: CITRIC ACID/SODIUM CITRATE 15 ML UDC PO SCH (06:00)
[2024-10-15 06:08] LABS: Hematocrit (blood only) 28.6 % (37.0-47.0); Hemoglobin 9.2 g/dl (12.0-16.0); Mean Corpuscular Hemoglobin 28.8 pg (25.0-34.0); Mean Corpuscular Volume 89.7 fL (80.0-100.0); Platelet Count 210 K/uL (130-400); RDW Standard Deviation 44.9 fL (36.4-46.3); Red Blood Count 3.19 M/uL (4.20-5.40); White Blood Count 12.10 K/ul (4.8-10.8)
--- NOTE | 2024-10-15 07:13 | Obstetrical Progress Note ---
Date of Service <Ishaan Phipps MD - Last Filed: 10/15/24 09:04> October 15, 2024 Assessment & Plan <Ishaan Phipps MD - Last Filed: 10/15/24 09:04> (1) care and examination: 34yo post-op day 2 s/p section Fells well today. Vital signs stable. BPs normal range; continue labetalol if BPs are elevated, hold if normal Continue post- care Continue mag until 24hr galdino Nausea and vomiting: continue promethazine and ondansetron Encourage bottle feeding Pain controlled with Ketorlac Hgb stable Cardiac concerns: IM on board. Recs appreciated. <Ramesh Dial MD - Last Filed: 10/18/24 14:01> (1) care and examination: Subjective <Ishaan Phipps MD - Last Filed: 10/15/24 09:04> 34yo post-op day 1 s/p section Ambulation: Not ambulating due to mag tx. SCDs on. Voiding: Cordero, collecting about 150cc/hr as per nurse Passing Gas:: No Diet Tolerance:: regular diet Lochia:: Small Feeding Type:: bottle feeding Current Pain Level: 0/10 controlled with ketorlac Resting comfortably this AM in NAD. Denies BOBBY, vision changes CP, SOB, abdominal pain, D, LE pain/swelling. (+) nausea and small amount of vomiting Physical Exam <Ishaan Phipps MD - Last Filed: 10/15/24 09:04> General: patient resting comfortably, NAD, non-toxic in appearance, answers questions appropriately Skin: warm, dry, intact Heart: S1/S2 heard, regular, no m/r/g Lungs: NC. equal air entry bilaterally, no rales/rhonchi/wheezes Abd: Normoactive BS, soft, NT/ND, uterine fundus firm below umbilicus, incision clean, dry, and intact Ext: warm, no clubbing/cyanosis or edema, Evie's neg, SCDs in place Neuro: nonfocal, patient AAOx4, speech intact, no facial droop, moving all extremities on command Results & Data <Ishaan Phipps MD - Last Filed: 10/15/24 09:04> Vital Signs (Past 12 Hours) Vital Signs Temp Pulse Pulse Resp BP BP Pulse Ox 10/15/24 06:09 36.3 C L 71 16 118/84 100 10/15/24 05:03 36.3 C L 71 14 114/77 99 10/15/24 04:00 62 16 108/74 99 10/15/24 02:56 74 16 110/64 99 10/15/24 01:54 36.2 C L 64 16 118/64 99 10/15/24 01:00 36.2 C L 83 16 112/74 98 10/15/24 00:26 93 H 10/15/24 00:22 65 14 117/71 99 10/14/24 23:36 10/14/24 23:19 92 H 18 138/86 10/14/24 23:05 36.8 C 18 128/83 98 10/14/24 22:55 14 10/14/24 22:51 98 10/14/24 22:51 80 10/14/24 22:46 99 10/14/24 22:46 96 H 10/14/24 22:42 93 H 10/14/24 22:42 149/76 H 10/14/24 22:41 99 10/14/24 22:40 16 10/14/24 22:36 99 10/14/24 22:36 93 H 10/14/24 22:31 99 10/14/24 22:31 94 H 10/14/24 22:27 96 H 10/14/24 22:27 163/85 H 10/14/24 22:26 99 10/14/24 22:26 86 10/14/24 22:25 14 10/14/24 22:21 99 10/14/24 22:21 103 H 10/14/24 22:16 99 10/14/24 22:16 90 10/14/24 22:13 100 H 10/14/24 22:13 186/99 H 10/14/24 22:11 100 10/14/24 22:11 110 H 10/14/24 22:10 16 10/14/24 22:06 99 10/14/24 22:06 113 H 10/14/24 22:01 100 10/14/24 22:01 36.6 C 104 H 10/14/24 21:57 102 H 07/17/25 21:57 167/79 H 10/14/24 21:56 100 10/14/24 21:56 101 H 10/14/24 21:55 14 10/14/24 21:51 99 10/14/24 21:51 91 H 10/14/24 21:46 99 10/14/24 21:46 106 H 10/14/24 21:42 101 H 10/14/24 21:42 162/95 H 10/14/24 21:41 100 10/14/24 21:41 97 H 10/14/24 21:40 14 10/14/24 21:36 99 10/14/24 21:36 90 10/14/24 21:31 99 10/14/24 21:31 79 10/14/24 21:27 98 H 10/14/24 21:27 151/112 H 10/14/24 21:26 100 10/14/24 21:26 88 10/14/24 21:25 14 10/14/24 21:21 99 10/14/24 21:21 83 10/14/24 21:17 95 H 10/14/24 21:17 143/104 H 10/14/24 21:16 100 10/14/24 21:16 85 10/14/24 21:13 99 H 10/14/24 21:13 178/88 H 10/14/24 21:12 97 H 10/14/24 21:12 218/88 H 10/14/24 21:11 100 10/14/24 21:11 90 10/14/24 21:10 15 10/14/24 21:06 99 10/14/24 21:06 98 H 10/14/24 21:01 99 10/14/24 21:01 109 H 10/14/24 20:57 97 H 10/14/24 20:57 139/89 10/14/24 20:56 100 10/14/24 20:56 88 10/14/24 20:55 12 10/14/24 20:51 98 10/14/24 20:51 82 10/14/24 20:46 99 10/14/24 20:46 97 H 10/14/24 20:42 100 H 10/14/24 20:42 151/70 H 10/14/24 20:41 99 10/14/24 20:41 102 H 10/14/24 20:40 12 10/14/24 20:36 99 10/14/24 20:36 118 H 10/14/24 20:31 98 10/14/24 20:31 108 H 10/14/24 20:27 116 H 10/14/24 20:27 134/70 10/14/24 20:26 98 10/14/24 20:26 114 H 10/14/24 20:25 14 10/14/24 20:21 98 10/14/24 20:21 127 H 10/14/24 20:16 98 10/14/24 20:16 99 H 10/14/24 20:12 100 H 10/14/24 20:12 148/80 H 10/14/24 20:11 99 10/14/24 20:11 97 H 10/14/24 20:10 14 10/14/24 20:10 90 10/14/24 20:10 147/75 H 10/14/24 20:06 99 10/14/24 20:06 81 10/14/24 20:01 99 10/14/24 20:01 91 H 10/14/24 19:57 85 10/14/24 19:57 143/77 H 10/14/24 19:56 98 10/14/24 19:56 88 10/14/24 19:51 99 10/14/24 19:51 96 H 10/14/24 19:46 100 10/14/24 19:46 75 10/14/24 19:45 10/14/24 19:41 96 10/14/24 19:41 101 H 10/14/24 19:39 101 H 10/14/24 19:39 36.6 C 156/86 H 10/14/24 19:37 93 10/14/24 19:37 96 H 10/14/24 19:36 95 10/14/24 19:36 88 10/14/24 19:31 97 10/14/24 19:31 100 H 10/14/24 19:26 96 10/14/24 19:26 105 H 10/14/24 19:26 100 H 10/14/24 19:26 171/86 H 10/14/24 19:24 94 10/14/24 19:24 104 H 10/14/24 19:22 106 H 10/14/24 19:22 178/94 H 10/14/24 19:21 96 10/14/24 19:21 105 H 10/14/24 19:19 92 10/14/24 19:19 110 H 10/14/24 19:16 96 10/14/24 19:16 111 H O2 Del Method O2 Flow Rate 10/15/24 06:09 Nasal Cannula 2 10/15/24 05:03 Nasal Cannula 2 10/15/24 04:00 Nasal Cannula 2 10/15/24 02:56 Nasal Cannula 1 10/15/24 01:54 Nasal Cannula 2 10/15/24 01:00 Nasal Cannula 2 10/15/24 00:26 10/15/24 00:22 Nasal Cannula 2 10/14/24 23:36 Nasal Cannula 2 10/14/24 23:19 Nasal Cannula 2 10/14/24 23:05 Nasal Cannula 2 10/14/24 22:55 10/14/24 22:51 10/14/24 22:51 10/14/24 22:46 10/14/24 22:46 10/14/24 22:42 10/14/24 22:42 10/14/24 22:41 10/14/24 22:40 10/14/24 22:36 10/14/24 22:36 10/14/24 22:31 10/14/24 22:31 10/14/24 22:27 10/14/24 22:27 10/14/24 22:26 10/14/24 22:26 10/14/24 22:25 10/14/24 22:21 10/14/24 22:21 10/14/24 22:16 10/14/24 22:16 10/14/24 22:13 10/14/24 22:13 10/14/24 22:11 10/14/24 22:11 10/14/24 22:10 10/14/24 22:06 10/14/24 22:06 10/14/24 22:01 10/14/24 22:01 10/14/24 21:57 10/14/24 21:57 10/14/24 21:56 10/14/24 21:56 10/14/24 21:55 10/14/24 21:51 10/14/24 21:51 10/14/24 21:46 10/14/24 21:46 10/14/24 21:42 10/14/24 21:42 10/14/24 21:41 10/14/24 21:41 10/14/24 21:40 10/14/24 21:36 10/14/24 21:36 10/14/24 21:31 10/14/24 21:31 10/14/24 21:27 10/14/24 21:27 10/14/24 21:26 10/14/24 21:26 10/14/24 21:25 10/14/24 21:21 10/14/24 21:21 10/14/24 21:17 10/14/24 21:17 10/14/24 21:16 10/14/24 21:16 10/14/24 21:13 10/14/24 21:13 10/14/24 21:12 10/14/24 21:12 10/14/24 21:11 10/14/24 21:11 10/14/24 21:10 10/14/24 21:06 10/14/24 21:06 10/14/24 21:01 10/14/24 21:01 10/14/24 20:57 10/14/24 20:57 10/14/24 20:56 10/14/24 20:56 10/14/24 20:55 10/14/24 20:51 10/14/24 20:51 10/14/24 20:46 10/14/24 20:46 10/14/24 20:42 10/14/24 20:42 10/14/24 20:41 10/14/24 20:41 10/14/24 20:40 10/14/24 20:36 10/14/24 20:36 10/14/24 20:31 10/14/24 20:31 10/14/24 20:27 10/14/24 20:27 10/14/24 20:26 10/14/24 20:26 10/14/24 20:25 10/14/24 20:21 10/14/24 20:21 10/14/24 20:16 10/14/24 20:16 10/14/24 20:12 10/14/24 20:12 10/14/24 20:11 10/14/24 20:11 10/14/24 20:10 10/14/24 20:10 10/14/24 20:10 10/14/24 20:06 10/14/24 20:06 10/14/24 20:01 10/14/24 20:01 10/14/24 19:57 10/14/24 19:57 10/14/24 19:56 10/14/24 19:56 10/14/24 19:51 10/14/24 19:51 10/14/24 19:46 10/14/24 19:46 10/14/24 19:45 Nasal Cannula 2 10/14/24 19:41 10/14/24 19:41 10/14/24 19:39 10/14/24 19:39 10/14/24 19:37 10/14/24 19:37 10/14/24 19:36 10/14/24 19:36 10/14/24 19:31 10/14/24 19:31 10/14/24 19:26 10/14/24 19:26 10/14/24 19:26 10/14/24 19:26 10/14/24 19:24 10/14/24 19:24 10/14/24 19:22 10/14/24 19:22 10/14/24 19:21 10/14/24 19:21 10/14/24 19:19 10/14/24 19:19 10/14/24 19:16 10/14/24 19:16 Supervising Physician <Ramesh Dial MD - Last Filed: 10/18/24 14:01> Co-Signing Physician Notes Patient seen with resident and agree with the above findings and plan. Continue care. Patient currently on telemetry and will continue to follow medicine recommendations related to cardiopulmonary care. Blood pressures improved with labetalol Resident Activity Tracking <Ishaan Phipps MD - Last Filed: 10/15/24 09:04> Resident Involvement: Resident Care Provided Care Provided: OB Delivery
[2024-10-15] MEDS: PROMETHAZINE 25 MG/51 ML BAG IV PRN (07:49)
[2024-10-15] MEDS: CALCIUM CARBONATE 500 MG CHEWABLE TAB PO PRN (07:52)
[2024-10-15] MEDS ORDERED: diphenhydrAMINE Capsule 25 MG CAP PO PRN (08:12)
[2024-10-15] MEDS ORDERED: diphenhydrAMINE 50 MG/ML VIAL IV PRN (08:12)
[2024-10-15] MEDS ORDERED: HYDROmorphone INJ 0.5 MG/0.5 ML SYR IV PRN (08:12)
[2024-10-15] MEDS ORDERED: ONDANSETRON INJ 2 MG/ML 2 ML VIAL IV PRN (08:12)
[2024-10-15] MEDS ORDERED: PROMETHAZINE 12.5 MG/50.5 ML BAG IV PRN (08:12)
[2024-10-15] MEDS: PRENATAL VITAMIN 1 TAB PO SCH (08:53)
[2024-10-15] MEDS: FERROUS SULFATE 325 MG TAB PO SCH (08:53)
--- NOTE | 2024-10-15 10:57 | Hospitalist Progress Note ---
Date of Service October 15, 2024 Assessment & Plan (1) PONV (postoperative nausea and vomiting): (2) Heart block AV second degree: (3) Hx of congenital heart disease: Stuart Vora is a 34F with a PMHx of ASD/VSD repair, dilated main pulmonary artery who presented to the hospital for C section with Dr. Dial. Hospital medicine consulted for "cardiopulmonary symptoms post delivery Post-Op Nausea and Vomiting | Shortness of breath | Hx of congenital heart abnormality/second-degree Mobitz type I heart block EKG with PVCs and incomplete RBB which is consistent to priors. Mag was low and replaced and then started on Mag drip for preeclampsia concerns. Tele now without PVCs, but did have an episode of AV block with vomiting and HR down to 20s. Cardiology consulted given her hx Labetalol stopped - discussed with OB will switch to Procardia CXR without acute findings. COVID/flu/RSV swab - negative. Wean O2 as able. Incentive spirometer. Thank you for allowing us to participate in the care of this patient, please reach out with any questions or concerns. Hospital Medicine will continue to Follow. Admission and Anticipated Discharge Date Admission Date: October 14, 2024 Supervising Physician Co-Signing Physician Notes PA Supervision Note: I did not personally see or examine the patient today, but I verified all monsalve points of MARILYN Carroll's assessment and plan with the following exceptions/additions: None Subjective Patient seen sitting up in bed. Did have some nausea and vomiting this morning causing her heart rate to drop Reports that head fogginess feeling is clearing up. denies chest pain or palpitations does feel like her breathing has improved. Review of Systems Review of Systems: All systems reviewed & are unremarkable except as noted in Subjective Physical Exam Physical Exam: General: NAD, VS as above Resp: normal respiratory effort, lungs much more clear, minimal rhonci CV: RRR, no murmur, Abd: normal bowel sounds, non tender, no hepatosplenomegaly Extremities: Moves all extremities, + edema Neuro: A&O x3, Skin: intact, no lesions noted, non-diaphoretic Results & Data Results & Data Vital Signs (Past 12 Hours) Vital Signs Temp Pulse Pulse Resp BP Pulse Ox O2 Del Method 10/15/24 10:30 20 10/15/24 09:36 97.7 F 85 18 135/86 99 Nasal Cannula 10/15/24 09:00 22 10/15/24 08:40 97.7 F 87 19 148/92 H 100 Nasal Cannula 10/15/24 07:45 22 10/15/24 07:38 97.2 F L 54 L 20 119/82 99 Nasal Cannula 10/15/24 06:09 97.3 F L 71 16 118/84 100 Nasal Cannula 10/15/24 05:03 97.3 F L 71 14 114/77 99 Nasal Cannula 10/15/24 04:00 62 16 108/74 99 Nasal Cannula 10/15/24 02:56 74 16 110/64 99 Nasal Cannula 10/15/24 01:54 97.2 F L 64 16 118/64 99 Nasal Cannula 10/15/24 01:00 97.2 F L 83 16 112/74 98 Nasal Cannula 10/15/24 00:26 93 H 10/15/24 00:22 65 14 117/71 99 Nasal Cannula 10/14/24 23:36 Nasal Cannula 10/14/24 23:19 92 H 18 138/86 Nasal Cannula 10/14/24 23:05 98.2 F 18 128/83 98 Nasal Cannula 10/14/24 22:55 14 O2 Flow Rate 10/15/24 10:30 10/15/24 09:36 2 10/15/24 09:00 10/15/24 08:40 2 10/15/24 07:45 10/15/24 07:38 2 10/15/24 06:09 2 10/15/24 05:03 2 10/15/24 04:00 2 10/15/24 02:56 1 10/15/24 01:54 2 10/15/24 01:00 2 10/15/24 00:26 10/15/24 00:22 2 10/14/24 23:36 2 10/14/24 23:19 2 10/14/24 23:05 2 10/14/24 22:55 Laboratory Results cbc and chemistry reviewed biofire reviewed PG Care Time/CCT Total # of Minutes Spent Total Time Spent with Patient: Total time spent is greater than 50% in coordination of care (as documented) at patient's floor/unit and/or counseling patient: Coding Level of Care Code 23745 SUB INP/OBS CARE 2/35MIN Diagnoses PONV (postoperative nausea and vomiting) R11.2; Z98.890 Heart block AV second degree I44.1 Hx of congenital heart disease Z87.74
--- NOTE | 2024-10-15 11:48 | Electrocardiogram Report ---
Test Reason : Blood Pressure : */* mmHG Vent. Rate : 71 BPM Atrial Rate : 71 BPM P-R Int : 204 ms QRS Dur : 102 ms QT Int : 422 ms P-R-T Axes : 17 -12 38 degrees QTcB Int : 458 ms Sinus rhythm with frequent Premature ventricular complexes Incomplete right bundle branch block Minimal voltage criteria for LVH, may be normal variant ( R in aVL ) Poor R wave progression, consider anterior [place] vs. lead placement vs. LVH Abnormal ECG When compared with ECG of 24-Sep-2023 08:20, (unconfirmed) Premature ventricular complexes are now Present VA interval has decreased Confirmed by Siva Gamble ([id number]) on 10/15/2024 11:46:58 AM Referred By: Ramesh Dial Confirmed By: Siva Gamble
--- NOTE | 2024-10-15 12:53 | Cardiology Consultation ---
Date of Consultation October 15, 2024 Assessment & Plan (1) Heart block AV second degree: -Patient demonstrated 2-1 AV conduction during an episode of nausea and vomiting. -Likely related to a high degree of vagal tone. -Most likely Mobitz type I second-degree AV block. -No further cardiac evaluation necessary. (2) Hx of congenital heart disease: -Surgeries during childhood as described above. -Continue routine follow-up with [facility], Dr. Ivonne Marie. History of Present Illness Attending Physician: Ramesh Dial MD History of Present Illness Miss Bush is a 34-year-old female admitted yesterday for an elective section. She demonstrated transient episodes of second-degree AV block while experiencing postoperative nausea and vomiting. This consultation was obtained to assist in her cardiac management. 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 6 months later, in February 1993, the patient underwent an ASD repair and resection of infundibular pulmonic stenosis. In November 1994, she underwent resection of a subpulmonic stenosis. She was diagnosed with a dilated main pulmonary artery in 2017. She continues follow-up with a congenital heart disease expert at [facility] (Ivonne Marie MD). Her most recent visit was in May 2024. That office note was reviewed in detail. The patient did have an echocardiogram performed in July 2024 which revealed normal left ventricular systolic function with an ejection fraction of 55 to 60%. There is no evidence of an atrial septal defect or ventricular septal defect. There is no valvular pathology. No prior studies for comparison. As above, following her section, the patient had postoperative nausea and vomiting. She demonstrated frequent PVCs, therefore, was placed on a monitor. This morning, with an episode of nausea and vomiting, the patient demonstrated 2-1 AV block. Currently, patient is resting comfortably in bed and without complaints. Her significant other, mother, and her are at the bedside. Past medical and surgical history 1. Congenital heart diseasesee above 2. VSD repairin infancy 3. ASD repairDe1992 4. Resection of infundibular pulmonic stenosisDe1992 5. Resection of subpulmonic stenosisSe1994 6. Dilated main pulmonary [id number] 7. Incomplete right bundle branch block 8. Nephrolithiasis Social history Lives with her significant other [employer] Outside [employer] at [employer] No tobacco or alcohol Family history Father had his first stent placed at age 57 Mother is alive and well Review of systems A 10 point review of system was undertaken and negative except that described above. Allergies Allergy/AdvReac Type Severity Reaction Status Date / Time cefpodoxime AdvReac Mild Diarrhea Verified 10/13/24 09:56 Home Medications Medication Instructions Recorded Confirmed Type vits no.133-ferrous 1 tab PO HS 09/30/24 10/14/24 History fumarate 28 mg-folic acid 800 mcg tablet () Patient History Medical History (Updated 10/15/24 @ 12:50 by Siva Gamble MD) Deafness in right ear Snoring - chronic - no witnessed apnea. 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 Ivonne Marie/[facility] Hx of congenital heart disease (1994) Hx ASD and VSD > repaired VSD repaired during infancy ASD repaired at six months of age Surgical History S/P ureteral stent placement Hx of lithotripsy History of cystoscopy S/P nasal surgery (2013) S/P wisdom tooth extraction (2016) S/P surgery for complex congenital heart disease (1994) ASD & VSD repair (age 6 months and 4 years) Family History Grandmother (Maternal) Breast cancer Aunt Breast cancer Maternal in 40s Other No family history of adverse response to anesthesia Denies family history of Ovarian cancer Colorectal cancer Uterine cancer Social History Smoking Status: Never smoker Second Hand Exposure: No; Do You Dip or Chew Tobacco: No; Tobacco Cessation Education Requested by Patient: No Hx Alcohol Use: No Hx Substance Use: No Preferred Language: Maldivian Communication Ability: Effective State Fire Marshal Required: No Beliefs That Will Affect Care: None marital status: marital status details: Mio Bush (30) [phone] Current Living Situation: Spouse Current Living Situation Comment: lives with spouse, cats-spouse changing litter current occupational status: employed 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 Other Information That Helps Us Care for You: No Feels Safe at Home: Yes Safety Concerns: Feels Safe At This Time Assistive Devices: Glasses Physical Exam Physical Exam: In general this is a short statured white female in no acute distress. HEENT exam is negative. Neck reveals normal carotid upstrokes without bruits. Jugular venous pressure is flat at 90. There is no thyromegaly. Cardiovascular exam reveals a regular rhythm with a normal S1 and S2. No S3, S4, or murmurs are noted. Chest reveals a well-healed midline scar. Lungs are clear without rales, rhonchi, or wheezes. Abdomen is soft without bruits. Extremities reveal intact radial artery and posterior tibial pulses bilaterally. There is no peripheral edema. Results & Data Vital Signs (Past 12 Hours) Vital Signs Temp Pulse Resp BP Pulse Ox O2 Del Method O2 Flow Rate 10/15/24 12:00 20 10/15/24 11:16 36.5 C 78 19 133/82 100 Nasal Cannula 2 10/15/24 10:30 20 10/15/24 09:36 36.5 C 85 18 135/86 99 Nasal Cannula 2 10/15/24 09:00 22 10/15/24 08:40 36.5 C 87 19 148/92 H 100 Nasal Cannula 2 10/15/24 08:00 Nasal Cannula 2 10/15/24 07:45 22 10/15/24 07:38 36.2 C L 54 L 20 119/82 99 Nasal Cannula 2 10/15/24 06:09 36.3 C L 71 16 118/84 100 Nasal Cannula 2 10/15/24 05:03 36.3 C L 71 14 114/77 99 Nasal Cannula 2 10/15/24 04:00 62 16 108/74 99 Nasal Cannula 2 10/15/24 02:56 74 16 110/64 99 Nasal Cannula 1 10/15/24 01:54 36.2 C L 64 16 118/64 99 Nasal Cannula 2 10/15/24 01:00 36.2 C L 83 16 112/74 98 Nasal Cannula 2 Laboratory Results CBC notes hemoglobin of 9.2, hematocrit 28.6, white count 12.1, and platelet count of 210,000. Electrolytes noted sodium 134, potassium 4.7, chloride 105, bicarb 26, BUN 9, creatinine 0.74, and a glucose of 117. TSH is normal at 3.17. Magnesium level was borderline at 1.6. Diagnostic Findings Review of telemetry notes 2-1 AV conduction during an episode of vomiting this morning. PG Care Time/CCT Total # of Minutes Spent Total Time Spent with Patient: Total time spent is greater than 50% in coordination of care (as documented) at patient's floor/unit and/or counseling patient: Coding Level of Care Code 50566 IN/OBS CONSULT LVL 4,60M Diagnoses Heart block AV second degree I44.1 Hx of congenital heart disease Z87.74
[2024-10-15] MEDS ORDERED: KETOROLAC 30 MG/ML VIAL IV PRN (13:53)
[2024-10-15] MEDS: IBUPROFEN 600 MG TAB PO SCH (14:10)
[2024-10-15] MEDS: SENNA 8.6 MG TAB PO PRN (14:12)
[2024-10-15 14:58] LABS: Hematocrit (blood only) 26.0 % (37.0-47.0); Hemoglobin 8.5 g/dl (12.0-16.0); Mean Corpuscular Hemoglobin 29.1 pg (25.0-34.0); Mean Corpuscular Volume 89.0 fL (80.0-100.0); Platelet Count 185 K/uL (130-400); RDW Standard Deviation 45.2 fL (36.4-46.3); Red Blood Count 2.92 M/uL (4.20-5.40); White Blood Count 10.76 K/ul (4.8-10.8)
[2024-10-15 15:17] LABS: Alanine Aminotransferase 8.0 U/L (7-52); Albumin Globulin Ratio 0.9 (0.9-2); Alkaline Phosphatase 113.0 U/L (34-104); Anion Gap 4.0 (3-11); Bilirubin,Total 0.2 mg/dl (0.2-1.0); Blood Urea Nitrogen 9.0 mg/dl (6-23); Calcium 7.0 mg/dl (8.6-10.3); Carbon Dioxide 26.0 mmol/L (21-32); Chloride 104.0 mmol/L (98-107); Creatinine Clr Calc Pharmacy 80.0 ml/min; Globulin 2.9 gm/dl (2.5-4.0); Glucose 128.0 mg/dl (70-99(Fasting)); Magnesium Therapeutic L&D Only 5.7 mg/dL (4.0-8.0); Potassium 4.2 mmol/L (3.5-5.1); Sodium 134.0 mmol/L (136-145); Total Protein 5.5 gm/dl (6.0-8.3)
[2024-10-15] MEDS: NIFEdipine EXTENDED REL 30 MG TABCR PO SCH (21:08)
--- NOTE | 2024-10-16 08:56 | Obstetrical Progress Note ---
Date of Service <Ishaan Phipps MD - Last Filed: 10/16/24 09:02> October 16, 2024 Assessment & Plan <Ishaan Phipps MD - Last Filed: 10/16/24 09:02> (1) care and examination: 34yo post-op day 2 s/p section Fells well today. Vital signs stable. BPs normal range; continue nifedipine 30mg Continue post- care Encourage bottle feeding Pain controlled with motrin Hgb stable Cardiac concerns: IM and cardiology on board Stop tele and transfer to today <Shauna Quintero DO - Last Filed: 10/16/24 09:57> (1) care and examination: Subjective <Ishaan Phipps MD - Last Filed: 10/16/24 09:02> 34yo post-op day 2 s/p section Ambulation: Fine Voiding: Fine Passing Gas:: Yes Diet Tolerance:: regular diet Lochia:: Small Feeding Type:: bottle feeding Current Pain Level: 0/10 controlled with motrin Resting comfortably this AM in NAD. Denies BOBBY, nausea, vomiting, vision changes CP, SOB, abdominal pain, LE pain/swelling. Physical Exam <Ishaan Phipps MD - Last Filed: 10/16/24 09:02> General: patient resting comfortably, NAD, non-toxic in appearance, answers questions appropriately Skin: warm, dry, intact Heart: S1/S2 heard, regular, no m/r/g Lungs: NC. equal air entry bilaterally, no rales/rhonchi/wheezes Abd: Normoactive BS, NT, distended, tympanic percussion, uterine fundus firm below umbilicus, incision clean, dry, and intact Ext: warm, no clubbing/cyanosis or edema, Evie's neg Neuro: nonfocal, patient AAOx4, speech intact, no facial droop, moving all extremities on command Results & Data <Ishaan Phipps MD - Last Filed: 10/16/24 09:02> Vital Signs (Past 12 Hours) Vital Signs Temp Pulse Pulse Resp BP Pulse Ox O2 Del Method 10/16/24 04:18 36.9 C 84 18 131/85 95 Room Air 10/16/24 00:02 37.1 C 76 16 125/80 93 Room Air 10/15/24 23:18 93 H Supervising Physician <Shauna Quintero DO - Last Filed: 10/16/24 09:57> Co-Signing Physician Notes Resident Physician Supervision Note: I interviewed and examined the patient. Discussed with Dr. Phipps and agree with findings and plan as documented in the note. Any exceptions or clarifications are listed here: POD#2 doing well. Plans to move to unit today. Ambulating, eating/drinking well. Incision CDI. Anticipate Dc home tomorrow. Documented By: Shauna Quintero DO Resident Activity Tracking <Ishaan Phipps MD - Last Filed: 10/16/24 09:02> Resident Involvement: Resident Care Provided Care Provided: OB Delivery
--- NOTE | 2024-10-16 09:12 | Hospitalist Progress Note ---
Date of Service October 16, 2024 Assessment & Plan (1) PONV (postoperative nausea and vomiting): (2) Heart block AV second degree: (3) Hx of congenital heart disease: Stuart Vora is a 34F with a PMHx of ASD/VSD repair, dilated main pulmonary artery who presented to the hospital for C section with Dr. Dial. Hospital medicine consulted for "cardiopulmonary symptoms post delivery Post-Op Nausea and Vomiting | Hx of congenital heart abnormality/second-degree Mobitz type I heart block EKG with PVCs and incomplete RBB which is consistent to priors. Mag was low and replaced and then started on Mag drip for preeclampsia concerns. Tele now without PVCs, but did have an episode of AV block with vomiting and HR down to 20s. Cardiology consulted given her hx and suspect related to high vagal tone. No further cardiac evaluation necessary. No further tele events - okay to downgrade back to PP. Would recommend procardia if continued BP meds needed. Shortness of breath CXR without acute findings. COVID/flu/RSV swab - negative. Now on room air Thank you for allowing us to participate in the care of this patient, please reach out with any questions or concerns. Hospital Medicine will sign off. Admission and Anticipated Discharge Date Admission Date: October 14, 2024 Supervising Physician Co-Signing Physician Notes PA Supervision Note: I did not personally see or examine the patient today, but I verified all monsalve points of MARILYN Carroll's assessment and plan with the following exceptions/additions: None Subjective patient seen sitting up in bed, reports feeling well, denies palpiations, chest pain or shortness of breath no longer having weird head feelings no more nausea Review of Systems Review of Systems: All systems reviewed & are unremarkable except as noted in Subjective Physical Exam Physical Exam: General: NAD, VS as above Resp: normal respiratory effort, lungs CTA CV: midly tachycardic but regular, no murmur, Abd: normal bowel sounds, non tender, no hepatosplenomegaly Extremities: Moves all extremities, no pitting LE Edema edema Neuro: A&O x3, Skin: intact, no lesions noted, non-diaphoretic Results & Data Results & Data Vital Signs (Past 12 Hours) Vital Signs Temp Pulse Pulse Resp BP Pulse Ox O2 Del Method 10/16/24 04:18 98.4 F 84 18 131/85 95 Room Air 10/16/24 00:02 98.8 F 76 16 125/80 93 Room Air 10/15/24 23:18 93 H PG Care Time/CCT Total # of Minutes Spent Total Time Spent with Patient: Total time spent is greater than 50% in coordination of care (as documented) at patient's floor/unit and/or counseling patient: Coding Level of Care Code 59611 SUB INP/OBS CARE 2/35MIN Diagnoses PONV (postoperative nausea and vomiting) R11.2; Z98.890 Heart block AV second degree I44.1 Hx of congenital heart disease Z87.74
--- NOTE | 2024-10-17 07:26 | Obstetrical Progress Note ---
Date of Service October 17, 2024 Assessment & Plan (1) care and examination: (2) Preeclampsia: Plan Patient overall doing well. Abdominal distention has significantly improved. Bps controlled on nifedipine. Meeting goals. Plan d/c home. Instructions given. f/u on in the office for a blood pressure check. Day #:: 3 Subjective Ambulation: ambulating normally Voiding: no voiding problems Passing Gas:: Yes Diet Tolerance:: regular diet Lochia:: Small Feeding Type:: bottle feeding Patient doing well. Pressures controlled on Nifedipine. No s/s of pet. no chest pain or sob. Physical Exam Constitutional WD/WN, vitals as above Respiratory normal respiratory effort, lungs clear to auscultation Cardiovascular RRR, no murmur, no edema Extremities: no calf tenderness and no edema Gastrointestinal (Abdomen) soft, nt, improved distention, +bs incision--c/d/i, ff/nt at u Psychiatric A+Ox3, euthymic affect Results & Data Vital Signs (Past 12 Hours) Vital Signs Temp Pulse Resp BP Pulse Ox O2 Del Method 10/16/24 23:30 36.7 C 90 18 122/85 97 Room Air 10/16/24 20:00 37 C 90 18 131/81 96 Room Air
[2024-10-17] MEDS: IBUPROFEN 600 MG TAB PO PRN (07:37)
[2024-10-17] MEDS: ACETAMINOPHEN 325 MG TAB PO PRN (07:38)
[2024-10-17 08:01] VITALS: BP 132/85; PULSE 104; RESP 24; TEMP 98.2; O2SAT 96
== END 2024-10-17 13:20 | disposition home or self-care (01) | DRG 787 ==
LOC: 4S1 07:03 → EDSTATUS 07:30 → 4W 23:17 → 4E2 10-16 12:45

== ENCOUNTER 2024-10-30 09:50 | Inpatient (IN) ==
--- NOTE | 2024-10-30 10:12 | Emergency Department Note ---
Impression & Plan pelvic thrombophlebitis, Acute right flank pain, Hypertension ED Provider Note NAME: AMADOR MONTIEL AGE: 34 SEX: F : 1990 ARRIVES VIA: Walk-In INFORMANT: Patient, ED PROVIDER(S): Siva Guzman DO CHIEF COMPLAINT: Flank pain HPI: The patient is a 34-year-old female who presented to the emergency department for right flank pain. The patient has recent history of a section 2 weeks ago. The patient was started on blood pressure medication. She does have some cardiac issues. The patient denies having any fever or chest pain. She denies having any difficulty breathing. She denies having any leg swelling. She does have a history of kidney stones in the past and feels this could be consistent with her previous episodes of kidney stones. She has noticed no obvious hematuria but is having some vaginal bleeding because of the recent delivery. ROS: See above HPI for pertinent positives & negatives. A total of 10 systems reviewed and were otherwise negative. PAST MEDICAL HISTORY: See Below PAST SURGICAL HISTORY: See Below FAMILY HISTORY: See Below SOCIAL HISTORY: See Below HOME MEDICATIONS: See Below ALLERGIES: See Below VITALS: See Below PHYSICAL EXAMINATION: GENERAL: Patient is awake alert in no acute distress patient is resting comfortably and showing no signs of anxiety EYES: The conjunctivae are clear. The pupils are round and reactive. EARS, NOSE, MOUTH AND THROAT: The nose is without any evidence of any deformity. NECK: The neck is nontender and supple. RESPIRATORY: Normal respiratory effort is noted there is no evidence of wheezing rhonchi or rales CARDIOVASCULAR: Regular rate and rhythm noted there no murmurs rubs or gallops normal S1 normal S2. GASTROINTESTINAL: The abdomen is soft. Abdomen is nontender. BACK: Right CVA tenderness was noted to percussion. Range of motion appears intact MUSCULOSKELETAL/EXTREMITIES: There is no evidence of gross deformity full range of motion is noted in the hips and shoulders. SKIN: There is no obvious evidence of any rash. There are no petechiae, pallor or cyanosis noted. NEUROLOGIC: Patient is awake alert and oriented x3 strength is symmetric patellar reflexes are 2+ bilaterally MEDICAL DECISION MAKING: The patient is a 34-year-old female who presented to the emergency department for right flank pain. Patient has a history of kidney stones. The patient thought this was consistent with her previous history of kidney stones. She is 2 weeks . The patient was treated with pain medication in the emergency department. She was also treated with antihypertensive medication. I discussed the patient's laboratory and radiographic studies with her. She was feeling much better on subsequent reevaluation. I discussed her condition with the on-call [facility] LOOKBACK COORDINATOR physician as well as the on-call [facility] hospitalist. Given her findings on CT I do feel she may require further inpatient management. It was decided that the patient should be started on anticoagulation. Triage Nursing notes reviewed. Prior medical records reviewed Vital Signs: reviewed and remarkable for tachycardia. Differential diagnosis: Renal colic, UTI, appendicitis, diverticulitis, mesenteric ischemia, aortic pathology, infections, inflammatory bowel disease, PUD, biliary pathology, as well as other pathologies. ER treatment provided: See below Diagnostics interpreted by me: ECG: none Cardiac Monitoring: An order was placed for continuous cardiac monitoring. The monitor shows a rate of 106 bpm with sinus tachycardia. Laboratory studies: As stated above and show below. Imaging studies: See below. Radiographic imaging was reviewed by myself Consultation(s): I discussed this case with Dr Zuniga who was finance professional for OBGYN I discussed this case with Dr. Jung who is on-call for [facility] hospitalist group. I have personally spent greater than 40 minutes of critical care time in the direct management of this patient. This includes bedside care, interpretation of diagnostic studies, and testing, discussion with consultants, patient, and family members, and other required patient management activities. This 40 minutes is in excess of all separately billable procedures. Past Med/Surg History Problem List (Updated 10/30/24 @ 14:57 by Siva Guzman DO) Hypertension (Acute) Acute right flank pain (Acute) pelvic thrombophlebitis (Acute) Preeclampsia Heart block AV second degree care and examination Obesity affecting Need for rhogam due to Rh negative mother Varicella vaccination Encounter for anatomic survey Early stage of (Acute) Supervision of normal first Kidney stone (Chronic) Medical History Deafness in right ear Snoring - chronic - no witnessed apnea. 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 ASD repaired at six months of age Surgical History S/P ureteral stent placement Hx of lithotripsy History of cystoscopy S/P nasal surgery (2013) S/P wisdom tooth extraction (2016) S/P surgery for complex congenital heart disease (1994) ASD & VSD repair (age 6 months and 4 years) Family History Grandmother (Maternal) Breast cancer Aunt Breast cancer Maternal in 40s Other No family history of adverse response to anesthesia Denies family history of Ovarian cancer Colorectal cancer Uterine cancer Social History Smoking Status: Current every day smoker Second Hand Exposure: No; Do You Dip or Chew Tobacco: No; Hx Alcohol Use: No Hx Substance Use: No Preferred Language: French Communication Ability: Effective Car Lot Attendant Required: No Beliefs That Will Affect Care: None marital status: marital status details: Mio Montiel (30) [phone] Current Living Situation: Spouse Current Living Situation Comment: lives with spouse, cats-spouse changing litter current occupational status: employed 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 Feels Safe at Home: Yes Assistive Devices: Glasses Allergies Allergies Allergy/AdvReac Type Severity Reaction Status Date / Time cefpodoxime AdvReac Mild Diarrhea Verified 10/13/24 09:56 Home Meds Home Medications Medication Instructions Recorded Confirmed vits no.[id number]-ferrous 1 tab PO HS 09/30/24 10/30/24 fumarate 28 mg-folic acid 800 mcg tablet () Previous Rx's Medication Instructions Recorded nifedipine 30 mg tablet,extended 30 mg PO HS #30 tabs 10/17/24 release 24 hr (Procardia XL) oxycodone 5 mg tablet 5 - 10 mg (1 - 2 x 5 mg) PO Q3H 10/17/24 PRN pain #10 tabs Results & Data (ED) Vital Signs Vital Signs - 24 hr 10/30/24 09:52 10/30/24 10:12 10/30/24 10:19 Temperature 36.7 C Temperature Source Temporal Artery Scan Pulse Rate 108 H 105 H 109 H Pulse Rate [Apical] Pulse Rate from SpO2 Sensor Respiratory Rate 18 Respiratory Effort / Characteristics Non-Labored Spontaneous Respiratory Depth Normal Respiratory Pattern Regular Blood Pressure 136/78 Blood Pressure [Right Arm] Blood Pressure Mean 97 Blood Pressure Mean [Right Arm] Pulse Oximetry 98 95 Oxygen Delivery Method Room Air Room Air Sepsis Recent Fever Within 48 Hours No Sepsis New/Unexplained Change in Mental Status N/A Sepsis Action Taken by Nursing No Action Required 10/30/24 10:21 10/30/24 10:30 10/30/24 10:31 Temperature Temperature Source Pulse Rate 103 H 100 H Pulse Rate [Apical] Pulse Rate from SpO2 Sensor 105 H 100 H Respiratory Rate 12 19 Respiratory Effort / Characteristics Respiratory Depth Respiratory Pattern Blood Pressure 189/119 H Blood Pressure [Right Arm] Blood Pressure Mean 134 Blood Pressure Mean [Right Arm] Pulse Oximetry 96 92 Oxygen Delivery Method Sepsis Recent Fever Within 48 Hours Sepsis New/Unexplained Change in Mental Status Sepsis Action Taken by Nursing 10/30/24 10:33 10/30/24 11:07 10/30/24 11:21 Temperature Temperature Source Pulse Rate 98 H 99 H Pulse Rate [Apical] Pulse Rate from SpO2 Sensor 98 H 99 H Respiratory Rate 16 17 Respiratory Effort / Characteristics Respiratory Depth Respiratory Pattern Blood Pressure 149/85 H Blood Pressure [Right Arm] Blood Pressure Mean 94 Blood Pressure Mean [Right Arm] Pulse Oximetry 93 92 Oxygen Delivery Method Sepsis Recent Fever Within 48 Hours Sepsis New/Unexplained Change in Mental Status Sepsis Action Taken by Nursing 10/30/24 11:30 10/30/24 12:00 10/30/24 12:00 Temperature Temperature Source Pulse Rate 102 H 102 H Pulse Rate [Apical] Pulse Rate from SpO2 Sensor 102 H Respiratory Rate 18 18 Respiratory Effort / Characteristics Respiratory Depth Respiratory Pattern Blood Pressure 140/94 Blood Pressure [Right Arm] Blood Pressure Mean 124 Blood Pressure Mean [Right Arm] Pulse Oximetry 96 Oxygen Delivery Method Sepsis Recent Fever Within 48 Hours Sepsis New/Unexplained Change in Mental Status Sepsis Action Taken by Nursing 10/30/24 12:16 10/30/24 12:21 10/30/24 12:32 Temperature Temperature Source Pulse Rate 110 H 94 H Pulse Rate [Apical] Pulse Rate from SpO2 Sensor 94 H Respiratory Rate 16 Respiratory Effort / Characteristics Respiratory Depth Respiratory Pattern Blood Pressure 140/94 127/86 Blood Pressure [Right Arm] Blood Pressure Mean 97 Blood Pressure Mean [Right Arm] Pulse Oximetry 94 Oxygen Delivery Method Sepsis Recent Fever Within 48 Hours Sepsis New/Unexplained Change in Mental Status Sepsis Action Taken by Nursing 10/30/24 12:33 10/30/24 12:40 10/30/24 12:57 Temperature Temperature Source Pulse Rate 94 H 94 H 90 Pulse Rate [Apical] Pulse Rate from SpO2 Sensor 95 H 90 Respiratory Rate 19 17 Respiratory Effort / Characteristics Respiratory Depth Respiratory Pattern Blood Pressure 127/86 Blood Pressure [Right Arm] Blood Pressure Mean Blood Pressure Mean [Right Arm] Pulse Oximetry 96 92 Oxygen Delivery Method Sepsis Recent Fever Within 48 Hours Sepsis New/Unexplained Change in Mental Status Sepsis Action Taken by Nursing 10/30/24 13:00 10/30/24 13:03 10/30/24 13:21 Temperature Temperature Source Pulse Rate 93 H 96 H Pulse Rate [Apical] Pulse Rate from SpO2 Sensor 93 H 95 H Respiratory Rate 18 17 Respiratory Effort / Characteristics Respiratory Depth Respiratory Pattern Blood Pressure 131/80 Blood Pressure [Right Arm] Blood Pressure Mean 104 Blood Pressure Mean [Right Arm] Pulse Oximetry 94 94 Oxygen Delivery Method Sepsis Recent Fever Within 48 Hours Sepsis New/Unexplained Change in Mental Status Sepsis Action Taken by Nursing 10/30/24 13:44 10/30/24 13:51 10/30/24 14:00 Temperature Temperature Source Pulse Rate Pulse Rate [Apical] 94 H Pulse Rate from SpO2 Sensor Respiratory Rate 20 Respiratory Effort / Characteristics Non-Labored Respiratory Depth Normal Respiratory Pattern Blood Pressure 139/82 137/85 Blood Pressure [Right Arm] 139/82 Blood Pressure Mean 107 104 Blood Pressure Mean [Right Arm] 101 Pulse Oximetry 95 Oxygen Delivery Method Room Air Sepsis Recent Fever Within 48 Hours Sepsis New/Unexplained Change in Mental Status Sepsis Action Taken by Nursing 10/30/24 14:03 10/30/24 14:28 Temperature Temperature Source Pulse Rate 95 H 106 H Pulse Rate [Apical] Pulse Rate from SpO2 Sensor 95 H Respiratory Rate 17 Respiratory Effort / Characteristics Respiratory Depth Respiratory Pattern Blood Pressure Blood Pressure [Right Arm] Blood Pressure Mean Blood Pressure Mean [Right Arm] Pulse Oximetry 93 Oxygen Delivery Method Sepsis Recent Fever Within 48 Hours Sepsis New/Unexplained Change in Mental Status Sepsis Action Taken by Half-Way Medications Current Medication List: was personally reviewed by me Laboratory Data Attestation: I reviewed the patient's lab results. 10/30/24 10:15 10/30/24 10:15 Lab Results 10/30/24 10/30/24 10/30/24 Range/Units 10:15 12:28 12:35 WBC 11.59 H (4.8-10.8) K/ul RBC 4.07 L (4.20-5.40) M/uL Hgb 11.5 L (12.0-16.0) g/dl Hct 36.0 L (37.0-47.0) % MCV 88.5 (80.0-100.0) fL MCH 28.3 (25.0-34.0) pg MCHC 31.9 L (32.0-36.0) g/dL RDW Std Deviation 45.2 (36.4-46.3) fL RDW Coeff of [place]shine 14.1 (11.5-14.5) % Plt Count 400 (130-400) K/uL MPV 10.1 (9.4-12.4) fL Immature Gran % (Auto) 0.3 % Neut % (Auto) 82.2 % Lymph % (Auto) 9.7 % Harmon % (Auto) 6.6 % Eos % (Auto) 0.9 % Baso % (Auto) 0.3 % Neut # (Auto) 9.53 H (1.40-6.50) K/uL Lymph # (Auto) 1.13 L (1.20-3.40) K/uL Harmon # (Auto) 0.76 H (0.11-0.59) K/uL Eos # (Auto) 0.10 (0.00-0.50) K/uL Baso # (Auto) 0.04 (0.00-0.20) K/uL Immature Gran # (Auto) 0.03 (0.01-0.20) K/uL APTT 30 (21-31) Seconds PTT Ratio 1.1 Sodium 137 (136-145) mmol/L Potassium 4.0 (3.5-5.1) mmol/L Chloride 102 (98-107) mmol/L Carbon Dioxide 27 (21-32) mmol/L Anion Gap 8 (3-11) BUN 9 (6-23) mg/dl Creatinine 0.64 (0.6-1.2) mg/dl Est Cr Clr Drug Dosing 91.5 ml/min eGFR 120.34 BUN/Creatinine Ratio 14.1 (10-20) Glucose 118 H (70-99(Fasting)) mg/dl Lactate 0.7 (0.4-2.0) mmol/L Calcium 9.2 (8.6-10.3) mg/dl Total Bilirubin 0.5 (0.2-1.0) mg/dl AST 13 (13-39) U/L ALT 12 (7-52) U/L Alkaline Phosphatase 111 H (34-104) U/L C-Reactive Protein 13.09 H (0-0.5) mg/dl Total Protein 8.0 (6.0-8.3) gm/dl Albumin 4.2 (3.4-5.0) gm/dl Globulin 3.8 (2.5-4.0) gm/dl Albumin/Globulin Ratio 1.1 (0.9-2) Lipase 13 (11-82) U/L Procalcitonin 0.08 (0-0.5) ng/ml HCG, Qual Negative (Negative) Urine Color Yellow Urine Appearance Clear (Clear) Urine pH 6.5 (4.5-7.5) Ur Specific [place] 1.020 (1.000-1.030) Urine Protein 1+ H (Negative) Urine Glucose (UA) Negative (Negative) Urine Ketones Trace H (Negative) Urine Blood Negative (Negative) Urine Nitrite Negative (Negative) Urine Bilirubin Negative (Negative) Urine Urobilinogen Negative (Negative) Ur Leukocyte Esterase Trace H (Negative) Urine WBC (Auto) 6-10 H (0-5) /hpf Urine RBC (Auto) 0-2 (0-2) /hpf U Hyaline Cast (Auto) 0-2 (0-2) /lpf U Epithel Cells (Auto) 0-2 (0-2) /hpf Urine Bacteria (Auto) None Seen (None Seen) Urine Comment Administered Medications Heparin Sodium/Dextrose (Heparin 11275 Unit/500 Ml D5w) 25,000 units in 500 mls @ 19 mls/hr IV .Q24H BRENDEN; Protocol Stop: 11/29/24 13:44 Last Admin: 10/30/24 14:20 Dose: 950 units/hr, 19 mls/hr Documented By: SWETA Co-signed By: MANN Discontinued Medications Acetaminophen (Acetaminophen 325 Mg Tab) 650 mg PO NOW STA Stop: 10/30/24 14:01 Last Admin: 10/30/24 14:11 Dose: 650 mg Documented By: MANN Heparin Sodium/Dextrose (Heparin Iv Adult Wt-Based Standard *No* Initial Bolus Protocol) 1 each IV ONE STA; Protocol Stop: 10/30/24 13:29 Last Admin: 10/30/24 14:21 Dose: 1 each Documented By: SWETA Sodium Chloride (Nss) 500 mls @ 999 mls/hr IV .Q31M STA Stop: 10/30/24 10:39 Last Infusion: 10/30/24 11:39 Dose: Infused Documented By: Admin: 10/30/24 10:23 Dose: 999 mls/hr Documented By: MANN Ioversol (Optiray 320 100ml) 94 ml IV ONCE ONE Stop: 10/30/24 11:00 Last Admin: 10/30/24 10:59 Dose: 94 ml Documented By: NIKHIL Labetalol HCl (Labetalol Hcl Iv 5 Mg/Ml 20ml) 5 mg IV NOW STA Stop: 10/30/24 12:09 Last Admin: 10/30/24 12:16 Dose: 5 mg Documented By: MANN Morphine Sulfate (Morphine Sulfate 4 Mg/Ml 1 Ml Carp\Vial) 4 mg IV Q15M PRN PRN Reason: Pain Stop: 11/13/24 10:08 Last Admin: 10/30/24 11:39 Dose: 4 mg Documented By: Admin: 10/30/24 10:23 Dose: 4 mg Documented By: MANN Ondansetron HCl (Ondansetron Inj 2 Mg/Ml 2 Ml Vial) 4 mg IV NOW STA Stop: 10/30/24 10:10 Last Admin: 10/30/24 10:23 Dose: 4 mg Documented By: MANN Ondansetron HCl (Ondansetron Inj 2 Mg/Ml 2 Ml Vial) 4 mg IV NOW STA Stop: 10/30/24 14:01 Last Admin: 10/30/24 14:11 Dose: 4 mg Documented By: MANN Imaging Data Attestation: I personally reviewed and interpreted this imaging study as follows: My Impression: CT of the abdomen and pelvis was obtained in the emergency department. Hydronephrosis was noted, there is no free air, final report below. Radiologist's Impression: Abdomen/Pelvis CT 10/30/24 10:10 CT SCAN OF THE ABDOMEN AND PELVIS WITH IV CONTRAST CLINICAL HISTORY: Low back pain. Flank pain. Recent section delivery. COMPARISON STUDY: Abdominal CT dated 02/09/2024 and 01/07/2024. TECHNIQUE: Following the IV administration of 94 cc of Optiray 320, CT scan of the abdomen and pelvis is performed from the lung bases to the proximal femora. Images are reviewed in the axial, sagittal, and coronal planes. IV contrast was administered without complication. A dose lowering technique was utilized adhering to the principles of ALARA. CT DOSE: 1221.01 mGy.cm FINDINGS: Lung bases: The heart is mildly enlarged and without pericardial effusion. The lung bases are clear. Liver: The contrast-enhanced liver is normal in size, contour, and attenuation. There is no intrahepatic biliary ductal dilatation. The hepatic veins and portal veins are patent. Gallbladder: Unremarkable. Spleen: Normal in size and attenuation. Pancreas: Unremarkable. Adrenal glands: Unremarkable. Kidneys: The contrast enhanced kidneys are normal in size. There is mild left and hald-zg-[id number] right hydroureteronephrosis. Both ureters are dilated to the inflammatory process in the pelvis. No obstructing stone is seen. The kidneys enhance symmetrically. Urothelial thickening and enhancement is seen in the distal ureters. Abdominal vasculature: The abdominal aorta is normal in course and caliber. Bowel: There is no bowel obstruction. There are scattered colonic diverticula without CT evidence of acute diverticulitis. The appendix is well-visualized and normal. Peritoneum: There is a small volume of free fluid in the cul-de-sac. No intraperitoneal free air is seen. There is a fat-containing umbilical hernia. Lymphadenopathy: None. Pelvic viscera: The bladder wall is thickened with surrounding inflammation. Hyperdense debris suggested within the bladder lumen. The postgravid uterus is enlarged and heterogeneous. A normal IVC and right iliac veins are not identified, which is unchanged from previous. There are large dilated veins in the pelvis, which were also seen on prior examinations. The largest uterine/adnexal veins in the right adnexa are thrombosed with significant surrounding inflammation. These are best seen on axial image #260. These vessels were patent on 01/17/2024. Skeletal structures: No lytic or blastic lesions are seen. IMPRESSION: 1. The heart is mildly enlarged. Additionally, a normal IVC and right-sided iliac veins are not identified. This is unchanged from 01/07/2024, and there are large collateral veins in the pelvis. 2. Several of the largest collateral veins in the right hemipelvis are thrombosed with significant surrounding inflammation consistent with a thrombophlebitis. These vessels were patent on 01/07/2024. 3. The postgravid uterus is enlarged and heterogeneous. 4. The bladder wall appears thickened with surrounding inflammation. There is also urothelial thickening and enhancement of the distal ureters. Additionally, there is hyperdense material within the bladder lumen which may represent blood clots. Correlate with clinical findings and urinalysis. 5. There is mild left and bpox-zj-ssftoqop right bilateral hydroureteronephrosis, likely secondary to the inflammatory process in the pelvis. 6. Normal appendix. 7. There is a small volume of free fluid in the pelvis. 8. Additional findings as above. ACT 112: Negative or not required by law. Electronically signed by: Jose Driscoll M.D. 10/30/2024 11:40 AM Discharge Plan Visit Data Chief Complaint: Kidney Stone Stated Complaint: SEVERE BACK PAIN,KIDNEY STONES ED Provider: Siva Guzman Discharge Problem: pelvic thrombophlebitis, Acute right flank pain, Hypertension Patient Disposition: Being Evaluated by Hospitalist Condition: Fair Forms Stand Alone Forms: [facility] [employer] Prescriptions Prescriptions: No Action 28-800 mg-mcg Tablet 1 tab PO HS nifedipine [Procardia XL] 30 mg Tablet Extended Release 24hr 30 mg PO HS Qty: 30 1RF oxycodone 5 mg Tablet 5 - 10 mg PO Q3H PRN (Reason: pain) Qty: 10 0RF Referrals Referrals: PCP,NO [Primary Care Provider] -
[2024-10-30] MEDS: ONDANSETRON INJ 2 MG/ML 2 ML VIAL IV STA ×2 (10:23→14:11)
[2024-10-30] MEDS: MoRPHine SULFATE 4 MG/ML 1 ML CARP\\VIAL IV PRN (10:23)
[2024-10-30] MEDS: SODIUM CHLORIDE 0.9% 500 ML IV STA (10:23)
[2024-10-30 10:28] LABS: Hematocrit (blood only) 36.0 % (37.0-47.0); Hemoglobin 11.5 g/dl (12.0-16.0); Immature Granulocytes # (auto) 0.03 K/uL (0.01-0.20); Immature Granulocytes % (auto) 0.3 %; Mean Corpuscular Hemoglobin 28.3 pg (25.0-34.0); Mean Corpuscular Volume 88.5 fL (80.0-100.0); Platelet Count 400 K/uL (130-400); RDW Standard Deviation 45.2 fL (36.4-46.3); Red Blood Count 4.07 M/uL (4.20-5.40); White Blood Count 11.59 K/ul (4.8-10.8)
[2024-10-30 10:35] LABS: Appearance Urine Clear (Clear); Bacteria Urine Automated None Seen (None Seen); Cast Urine Automated 0-2 /lpf (0-2); Epithelial Cell Urine Auto 0-2 /hpf (0-2); Glucose Urine UA Negative (Negative); RBC Urine Automated 0-2 /hpf (0-2)
[2024-10-30 10:45] LABS: Alanine Aminotransferase 12.0 U/L (7-52); Albumin Globulin Ratio 1.1 (0.9-2); Alkaline Phosphatase 111.0 U/L (34-104); Anion Gap 8.0 (3-11); Bilirubin,Total 0.5 mg/dl (0.2-1.0); Blood Urea Nitrogen 9.0 mg/dl (6-23); Calcium 9.2 mg/dl (8.6-10.3); Carbon Dioxide 27.0 mmol/L (21-32); Chloride 102.0 mmol/L (98-107); Creatinine Clr Calc Pharmacy 91.5 ml/min; Globulin 3.8 gm/dl (2.5-4.0); Glucose 118.0 mg/dl (70-99(Fasting)); Lipase 13.0 U/L (11-82); Potassium 4.0 mmol/L (3.5-5.1); Sodium 137.0 mmol/L (136-145); Total Protein 8.0 gm/dl (6.0-8.3)
[2024-10-30] MEDS: OPTIRAY 320 100ml IV ONE (10:59)
[2024-10-30 11:04] LABS: Pregnancy Test, Serum Negative (Negative)
--- NOTE | 2024-10-30 11:43 | CT Scan Report ---
CT SCAN OF THE ABDOMEN AND PELVIS WITH IV CONTRAST CLINICAL HISTORY: Low back pain. Flank pain. Recent section delivery. COMPARISON STUDY: Abdominal CT dated 02/09/2024 and 01/07/2024. TECHNIQUE: Following the IV administration of 94 cc of Optiray 320, CT scan of the abdomen and pelvi s is performed from the lung bases to the proximal femora. Images are reviewed in the axial, sagittal , and coronal planes. IV contrast was administered without complication. A dose lowering technique wa s utilized adhering to the principles of ALARA. CT DOSE: 1221.01 mGy.cm FINDINGS: Lung bases: The heart is mildly enlarged and without pericardial effusion. The lung bases are clear. Liver: The contrast-enhanced liver is normal in size, contour, and attenuation. There is no intrahepa tic biliary ductal dilatation. The hepatic veins and portal veins are patent. Gallbladder: Unremarkable. Spleen: Normal in size and attenuation. Pancreas: Unremarkable. Adrenal glands: Unremarkable. Kidneys: The contrast enhanced kidneys are normal in size. There is mild left and imzh-rf-wkpwqqpu ri ght hydroureteronephrosis. Both ureters are dilated to the inflammatory process in the pelvis. No obs tructing stone is seen. The kidneys enhance symmetrically. Urothelial thickening and enhancement is s een in the distal ureters. Abdominal vasculature: The abdominal aorta is normal in course and caliber. Bowel: There is no bowel obstruction. There are scattered colonic diverticula without CT evidence of acute diverticulitis. The appendix is well-visualized and normal. Peritoneum: There is a small volume of free fluid in the cul-de-sac. No intraperitoneal free air is s een. There is a fat-containing umbilical hernia. Lymphadenopathy: None. Pelvic viscera: The bladder wall is thickened with surrounding inflammation. Hyperdense debris sugges yvette within the bladder lumen. The postgravid uterus is enlarged and heterogeneous. A normal IVC and r ight iliac veins are not identified, which is unchanged from previous. There are large dilated veins in the pelvis, which were also seen on prior examinations. The largest uterine/adnexal veins in the r ight adnexa are thrombosed with significant surrounding inflammation. These are best seen on axial im age #260. These vessels were patent on 01/17/2024. Skeletal structures: No lytic or blastic lesions are seen. IMPRESSION: 1. The heart is mildly enlarged. Additionally, a normal IVC and right-sided iliac veins are not ident ified. This is unchanged from 01/07/2024, and there are large collateral veins in the pelvis. 2. Several of the largest collateral veins in the right hemipelvis are thrombosed with significant altamirano rrounding inflammation consistent with a thrombophlebitis. These vessels were patent on 01/07/2024. 3. The postgravid uterus is enlarged and heterogeneous. 4. The bladder wall appears thickened with surrounding inflammation. There is also urothelial thicken ing and enhancement of the distal ureters. Additionally, there is hyperdense material within the blad britni lumen which may represent blood clots. Correlate with clinical findings and urinalysis. 5. There is mild left and eipp-iz-duypjwws right bilateral hydroureteronephrosis, likely secondary to the inflammatory process in the pelvis. 6. Normal appendix. 7. There is a small volume of free fluid in the pelvis. 8. Additional findings as above. ACT 112: Negative or not required by law. Electronically signed by: Jose Driscoll M.D. 10/30/2024 11:40 AM
[2024-10-30] MEDS: LABETALOL HCL IV 5 MG/ML 20ML IV STA (12:16)
[2024-10-30] MEDS ORDERED: MoRPHine SULFATE 4 MG/ML 1 ML CARP\\VIAL IV PRN (13:28)
[2024-10-30 14:00] LABS: Partial Thromboplastin Time 30 Seconds (21-31)
[2024-10-30] MEDS: ACETAMINOPHEN 325 MG TAB PO STA (14:11)
[2024-10-30] MEDS: HEPARIN 25000 UNIT/500 ML D5W 25,000 UNITS/500 ML BAG IV SCH (14:20)
[2024-10-30] MEDS: Heparin IV Adult Wt-Based Standard *NO* INITIAL Bolus Protocol IV STA (14:21)
--- NOTE | 2024-10-30 15:49 | History & Physical Report ---
Date of Service October 30, 2024 Assessment & Plan (1) pelvic thrombophlebitis: Plan: -CT a/p showed several of the largest collateral veins in the right hemipelvis are thrombosed with significant surrounding inflammation consistent with a thrombophlebitis. -pt not planning to breast feed -heparin drip started -morphine for pain control -will transition to DOAC upon d/c -OB[employer] consulted (2) Preeclampsia: Plan: -BP uncontrol -will con't procardia History of Present Illness Chief Complaint: Abdominal pain Primary Care Provider: NO PCP Pt is a 34 y/o female with no significant pmh who is 2 weeks post from c- section who presents with abdominal/pack pain that has not been improving since her delivery. Pt does complain of nausea, denies any fever, or vaginal bleeding/discharge. Pt has h/o of kidney stones and was concerned that her pain my be due to them. In the ER patient had CT a/p which showed several of the largest collateral veins in the right hemipelvis are thrombosed with significant surrounding inflammation consistent with a thrombophlebitis. The case was discussed by ER with OBG-[employer] who recommended admission to medicine. Pt states she does not plan to breast feed and heparin drip was started in ER. Allergies Allergy/AdvReac Type Severity Reaction Status Date / Time cefpodoxime AdvReac Mild Diarrhea Verified 10/13/24 09:56 Home Medications Medication Instructions Recorded Confirmed Type vits no.133-ferrous 1 tab PO HS 09/30/24 10/30/24 History fumarate 28 mg-folic acid 800 mcg tablet () nifedipine 30 mg tablet,extended 30 mg PO HS #30 tabs 10/17/24 10/30/24 Rx release 24 hr (Procardia XL) oxycodone 5 mg tablet 5 - 10 mg (1 - 2 x 5 mg) PO Q3H 10/17/24 10/30/24 Rx PRN pain #10 tabs Past Med/Surg History Problem List (Updated 10/30/24 @ 15:54 by Dominic Jung MD) Acute deep vein thrombosis of right side of pelvic region Hypertension (Acute) Acute right flank pain (Acute) pelvic thrombophlebitis (Acute) Preeclampsia Heart block AV second degree care and examination Obesity affecting Need for rhogam due to Rh negative mother Varicella vaccination Encounter for anatomic survey Early stage of (Acute) Supervision of normal first Kidney stone (Chronic) Medical History Deafness in right ear Snoring - chronic - no witnessed apnea. 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 ASD repaired at six months of age Surgical History S/P ureteral stent placement Hx of lithotripsy History of cystoscopy S/P nasal surgery (2013) S/P wisdom tooth extraction (2016) S/P surgery for complex congenital heart disease (1994) ASD & VSD repair (age 6 months and 4 years) Family History Grandmother (Maternal) Breast cancer Aunt Breast cancer Maternal in 40s Other No family history of adverse response to anesthesia Denies family history of Ovarian cancer Colorectal cancer Uterine cancer Social History Smoking Status: Current every day smoker Second Hand Exposure: No; Do You Dip or Chew Tobacco: No; Hx Alcohol Use: No Hx Substance Use: No Preferred Language: Cuban Communication Ability: Effective Engineering Associate Required: No Beliefs That Will Affect Care: None marital status: marital status details: Mio Bush (30) [phone] Current Living Situation: Spouse Current Living Situation Comment: lives with spouse, cats-spouse changing litter current occupational status: employed 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 Feels Safe at Home: Yes Assistive Devices: Glasses Review of Systems Review of Systems: CONST: Negative for fever, body aches and chills. HENT: Negative for neck pain/stiffness, headache, congestion, sore throat, swelling. EYES: Negative for discharge/pain or vision changes. RESP: Negative for cough/hemoptysis and shortness of breath. CV: Negative chest pain, difficulty breathing, palpitations. ABD: Negative pain, nausea, vomiting. : Negative increase frequency, dysuria, blood in urine or stool. MUSC: Negative for muscle aches, edema. SKIN: Negative rash, lesions/sores. NEURO: Negative headache, dizziness, weakness. Physical Exam Physical Exam: GENERAL APPEARANCE NAD, activity normal for age, well developed/ well nourished, no cyanosis, pallor, or diaphoresis. EYES lids/conjunctiva normal. EARS/NOSE/THROAT Mucous membranes moist, nares normal, lips/teeth normal uvula midline without oral pharyngeal erythema, exudate or swelling TMs normal bilaterally. No lymphangitis/lymphedema. HEAD/NECK normocephalic atraumatic, no facial trauma, neck is supple. RESPIRATORY respiratory effort normal, speaks in full sentences, no tripod position, no accessory muscle use. Lungs clear to auscultation without rhonchi, wheezes, rales CARDIAC Regular rate and rhythm, no edema. ABDOMINAL Soft, ND/NT. No evidence of fluid wave. No pulsatile masses on exam, rebound tenderness, Li sign or pain over Mcburney's point. MUSCLES/EXTREMITIES No abnormal range of motion, no swelling. SKIN Warm, pink and dry. No rashes, dermatoses, petechiae or lesions. NEUROLOGICAL Speech is clear and appropriate. Normal level of consciousness. Gait and coordination are normal. 5/5 strength in all extremities. PSYCH Normal mood and affect. Judgement/competence is appropriate Results & Data Results & Data Vital Signs (Past 12 Hours) Vital Signs Temp Pulse Pulse Resp BP BP Pulse Ox 10/30/24 15:00 88 15 134/76 92 10/30/24 14:28 106 H 10/30/24 14:03 95 H 17 93 10/30/24 14:00 137/85 10/30/24 13:51 94 H 20 139/82 95 10/30/24 13:44 139/82 10/30/24 13:21 96 H 17 94 10/30/24 13:03 93 H 18 94 10/30/24 13:00 131/80 10/30/24 12:57 90 17 92 10/30/24 12:40 94 H 127/86 10/30/24 12:33 94 H 19 96 10/30/24 12:32 127/86 10/30/24 12:21 94 H 16 94 10/30/24 12:16 110 H 140/94 10/30/24 12:00 102 H 18 96 10/30/24 12:00 140/94 10/30/24 11:30 102 H 18 10/30/24 11:21 99 H 17 92 10/30/24 11:07 149/85 H 10/30/24 10:33 98 H 16 93 10/30/24 10:31 189/119 H 10/30/24 10:30 100 H 19 92 10/30/24 10:21 103 H 12 96 10/30/24 10:19 109 H 95 10/30/24 10:12 105 H 10/30/24 09:52 36.7 C 108 H 18 136/78 98 O2 Del Method 10/30/24 15:00 Room Air 10/30/24 14:28 10/30/24 14:03 10/30/24 14:00 10/30/24 13:51 Room Air 10/30/24 13:44 10/30/24 13:21 10/30/24 13:03 10/30/24 13:00 10/30/24 12:57 10/30/24 12:40 10/30/24 12:33 10/30/24 12:32 10/30/24 12:21 10/30/24 12:16 10/30/24 12:00 10/30/24 12:00 10/30/24 11:30 10/30/24 11:21 10/30/24 11:07 10/30/24 10:33 10/30/24 10:31 10/30/24 10:30 10/30/24 10:21 10/30/24 10:19 Room Air 10/30/24 10:12 10/30/24 09:52 Room Air PG Care Time/CCT Total # of Minutes Spent Total Time Spent with Patient: Total time spent is greater than 50% in coordination of care (as documented) at patient's floor/unit and/or counseling patient: Coding Level of Care Code 68631 INT INP/OBS CARE MIN Diagnoses pelvic thrombophlebitis O87.1 Preeclampsia O14.90
--- NOTE | 2024-10-30 16:19 | Ultrasound Report ---
Examination: Doppler venous ultrasound of the lower extremity Comparison: None Technique: Grayscale evaluation with compression, spectral flow, and color Doppler assessment of the deep venous system of the leg, from the groin to the knee, as well as the lower leg Findings: The external iliac, common femoral, femoral, popliteal, peroneal and anterior and posterior tibial veins demonstrate normal compressibility and blood flow. The greater saphenous and small saphenous veins appear patent. Impression: No evidence for DVT of the right lower extremity Electronically signed by Ishaan Hodges 10-30-2024 4:18 PM
--- NOTE | 2024-10-30 16:57 | OB/GYN Consultation ---
Date of Consultation October 30, 2024 Assessment & Plan (1) pelvic thrombophlebitis: - Managed by medicine, appreciate their management (2) Preeclampsia: - Stable on nifedipine 30 daily - Preeclampsia labs within normal limits today, denies signs/symptoms of worsening preeclampsia (3) S/P : - Reports appropriate postoperative milestones/symptoms. Denies s/s infection, vs and labs w/o suggestion of this either - Can continue Tylenol, oxycodone for postoperative pain management. - anticipate possible increase in bleeding with therapeutic anticoagulation, will monitor History of Present Illness Reason for Consultation: 2 weeks /postop from primary Attending Physician: Dominic Jung MD History of Present Illness 34-year-old G1, P1 approximately 2 weeks status post primary elective complicated by severe preeclampsia, 24 h of magnesium, and subsequent cardiac monitoring due to persistent PVCs from heart block from prior cardiac surgeries presented to the hospital due to leg pain and suspected kidney stones that she has had these in the past. CT did not show evidence of kidney stones however did note several right hemipelvis collateral veins thrombosed with significant inflammation consistent with thrombophlebitis (these vessels were patent in December 2023). Patient now admitted to medicine service for pelvic thrombophlebitis and anticoagulation. OB consulted for routine postop care. Reports abdominal pain and bleeding from are stable from postoperative care, this is separate from her flank pain that she presented for. Notes intermittent headaches, but attributes this to dehydration. Denies signs or symptoms of preeclampsia otherwise. Allergies Allergy/AdvReac Type Severity Reaction Status Date / Time cefpodoxime AdvReac Mild Diarrhea Verified 10/13/24 09:56 Home Medications Medication Instructions Recorded Confirmed Type vits no.133-ferrous 1 tab PO HS 09/30/24 10/30/24 History fumarate 28 mg-folic acid 800 mcg tablet () nifedipine 30 mg tablet,extended 30 mg PO HS #30 tabs 10/17/24 10/30/24 Rx release 24 hr (Procardia XL) oxycodone 5 mg tablet 5 - 10 mg (1 - 2 x 5 mg) PO Q3H 10/17/24 10/30/24 Rx PRN pain #10 tabs Patient History Medical History (Updated 10/30/24 @ 15:54 by Dominic Jung MD) Deafness in right ear Snoring - chronic - no witnessed apnea. 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 ASD repaired at six months of age Surgical History (Updated 10/30/24 @ 16:56 by Yolanda Zuniga MD) S/P S/P ureteral stent placement Hx of lithotripsy History of cystoscopy S/P nasal surgery (2013) S/P wisdom tooth extraction (2016) S/P surgery for complex congenital heart disease (1994) ASD & VSD repair (age 6 months and 4 years) Family History Grandmother (Maternal) Breast cancer Aunt Breast cancer Maternal in 40s Other No family history of adverse response to anesthesia Denies family history of Ovarian cancer Colorectal cancer Uterine cancer Social History Smoking Status: Current every day smoker Second Hand Exposure: No; Do You Dip or Chew Tobacco: No; Hx Alcohol Use: No Hx Substance Use: No Preferred Language: Senegalese Communication Ability: Effective Resource Efficiency Manager Required: No Beliefs That Will Affect Care: None marital status: marital status details: Mio Bush (30) [phone] Current Living Situation: Spouse Current Living Situation Comment: lives with spouse, cats-spouse changing litter current occupational status: employed 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[employer] Feels Safe at Home: Yes Assistive Devices: Glasses Physical Exam Respiratory: normal respiratory effort; no respiratory distress and no labored breathing Gastrointestinal (Abdomen): abd soft, appropriately tender, incision c/d/i Results & Data Vital Signs (Past 12 Hours) Vital Signs Temp Pulse Pulse Resp BP BP Pulse Ox 10/30/24 15:00 88 15 134/76 92 10/30/24 14:28 106 H 10/30/24 14:03 95 H 17 93 10/30/24 14:00 137/85 10/30/24 13:51 94 H 20 139/82 95 10/30/24 13:44 139/82 10/30/24 13:21 96 H 17 94 10/30/24 13:03 93 H 18 94 10/30/24 13:00 131/80 10/30/24 12:57 90 17 92 10/30/24 12:40 94 H 127/86 10/30/24 12:33 94 H 19 96 10/30/24 12:32 127/86 10/30/24 12:21 94 H 16 94 10/30/24 12:16 110 H 140/94 10/30/24 12:00 102 H 18 96 10/30/24 12:00 140/94 10/30/24 11:30 102 H 18 10/30/24 11:21 99 H 17 92 10/30/24 11:07 149/85 H 10/30/24 10:33 98 H 16 93 10/30/24 10:31 189/119 H 10/30/24 10:30 100 H 19 92 10/30/24 10:21 103 H 12 96 10/30/24 10:19 109 H 95 10/30/24 10:12 105 H 10/30/24 09:52 98.1 F 108 H 18 136/78 98 O2 Del Method 10/30/24 15:00 Room Air 10/30/24 14:28 10/30/24 14:03 10/30/24 14:00 10/30/24 13:51 Room Air 10/30/24 13:44 10/30/24 13:21 10/30/24 13:03 10/30/24 13:00 10/30/24 12:57 10/30/24 12:40 10/30/24 12:33 10/30/24 12:32 10/30/24 12:21 10/30/24 12:16 10/30/24 12:00 10/30/24 12:00 10/30/24 11:30 10/30/24 11:21 10/30/24 11:07 10/30/24 10:33 10/30/24 10:31 10/30/24 10:30 10/30/24 10:21 10/30/24 10:19 Room Air 10/30/24 10:12 10/30/24 09:52 Room Air Laboratory Results 10/30/24 10/30/24 10/30/24 Range/Units 12:35 12:28 10:15 WBC 11.59 H (4.8-10.8) K/ul RBC 4.07 L (4.20-5.40) M/uL Hgb 11.5 L (12.0-16.0) g/dl Hct 36.0 L (37.0-47.0) % MCV 88.5 (80.0-100.0) fL MCH 28.3 (25.0-34.0) pg MCHC 31.9 L (32.0-36.0) g/dL RDW Std Deviation 45.2 (36.4-46.3) fL RDW Coeff of [place] 14.1 (11.5-14.5) % Plt Count 400 (130-400) K/uL MPV 10.1 (9.4-12.4) fL Immature Gran % (Auto) 0.3 % Neut % (Auto) 82.2 % Lymph % (Auto) 9.7 % [place] % (Auto) 6.6 % Eos % (Auto) 0.9 % Baso % (Auto) 0.3 % Neut # (Auto) 9.53 H (1.40-6.50) K/uL Lymph # (Auto) 1.13 L (1.20-3.40) K/uL [place] # (Auto) 0.76 H (0.11-0.59) K/uL Eos # (Auto) 0.10 (0.00-0.50) K/uL Baso # (Auto) 0.04 (0.00-0.20) K/uL Immature Gran # (Auto) 0.03 (0.01-0.20) K/uL APTT 30 (21-31) Seconds PTT Ratio 1.1 Sodium 137 (136-145) mmol/L Potassium 4.0 (3.5-5.1) mmol/L Chloride 102 (98-107) mmol/L Carbon Dioxide 27 (21-32) mmol/L Anion Gap 8 (3-11) BUN 9 (6-23) mg/dl Creatinine 0.64 (0.6-1.2) mg/dl Est Cr Clr Drug Dosing 91.5 ml/min eGFR 120.34 BUN/Creatinine Ratio 14.1 (10-20) Glucose 118 H (70-99(Fasting)) mg/dl Lactate 0.7 (0.4-2.0) mmol/L Calcium 9.2 (8.6-10.3) mg/dl Total Bilirubin 0.5 (0.2-1.0) mg/dl AST 13 (13-39) U/L ALT 12 (7-52) U/L Alkaline Phosphatase 111 H (34-104) U/L C-Reactive Protein 13.09 H (0-0.5) mg/dl Total Protein 8.0 (6.0-8.3) gm/dl Albumin 4.2 (3.4-5.0) gm/dl Globulin 3.8 (2.5-4.0) gm/dl Albumin/Globulin Ratio 1.1 (0.9-2) Lipase 13 (11-82) U/L Procalcitonin 0.08 (0-0.5) ng/ml HCG, Qual Negative (Negative) Urine Color Yellow Urine Appearance Clear (Clear) Urine pH 6.5 (4.5-7.5) Ur Specific [place] 1.020 (1.000-1.030) Urine Protein 1+ H (Negative) Urine Glucose (UA) Negative (Negative) Urine Ketones Trace H (Negative) Urine Blood Negative (Negative) Urine Nitrite Negative (Negative) Urine Bilirubin Negative (Negative) Urine Urobilinogen Negative (Negative) Ur Leukocyte Esterase Trace H (Negative) Urine WBC (Auto) 6-10 H (0-5) /hpf Urine RBC (Auto) 0-2 (0-2) /hpf U Hyaline Cast (Auto) 0-2 (0-2) /lpf U Epithel Cells (Auto) 0-2 (0-2) /hpf Urine Bacteria (Auto) None Seen (None Seen) Urine Comment Diagnostic Findings CT A/P: FINDINGS: Lung bases: The heart is mildly enlarged and without pericardial effusion. The lung bases are clear. Liver: The contrast-enhanced liver is normal in size, contour, and attenuation. There is no intrahepatic biliary ductal dilatation. The hepatic veins and portal veins are patent. Gallbladder: Unremarkable. Spleen: Normal in size and attenuation. Pancreas: Unremarkable. Adrenal glands: Unremarkable. Kidneys: The contrast enhanced kidneys are normal in size. There is mild left and [id number] right hydroureteronephrosis. Both ureters are dilated to the inflammatory process in the pelvis. No obstructing stone is seen. The kidneys enhance symmetrically. Urothelial thickening and enhancement is seen in the distal ureters. Abdominal vasculature: The abdominal aorta is normal in course and caliber. Bowel: There is no bowel obstruction. There are scattered colonic diverticula without CT evidence of acute diverticulitis. The appendix is well-visualized and normal. Peritoneum: There is a small volume of free fluid in the cul-de-sac. No intraperitoneal free air is seen. There is a fat-containing umbilical hernia. Lymphadenopathy: None. Pelvic viscera: The bladder wall is thickened with surrounding inflammation. Hyperdense debris suggested within the bladder lumen. The postgravid uterus is enlarged and heterogeneous. A normal IVC and right iliac veins are not identified, which is unchanged from previous. There are large dilated veins in the pelvis, which were also seen on prior examinations. The largest uterine/adnexal veins in the right adnexa are thrombosed with significant surrounding inflammation. These are best seen on axial image #260. These vessels were patent on 01/17/2024. Skeletal structures: No lytic or blastic lesions are seen. IMPRESSION: 1. The heart is mildly enlarged. Additionally, a normal IVC and right-sided iliac veins are not identified. This is unchanged from 01/07/2024, and there are large collateral veins in the pelvis. 2. Several of the largest collateral veins in the right hemipelvis are thrombosed with significant surrounding inflammation consistent with a thrombophlebitis. These vessels were patent on 01/07/2024. 3. The postgravid uterus is enlarged and heterogeneous. 4. The bladder wall appears thickened with surrounding inflammation. There is also urothelial thickening and enhancement of the distal ureters. Additionally, there is hyperdense material within the bladder lumen which may represent blood clots. Correlate with clinical findings and urinalysis. 5. There is mild left and [id number] right bilateral hydroureteronephrosis, likely secondary to the inflammatory process in the pelvis. 6. Normal appendix. 7. There is a small volume of free fluid in the pelvis. 8. Additional findings as above. PG Care Time/CCT Total # of Minutes Spent Total Time Spent with Patient: Total time spent is greater than 50% in coordination of care (as documented) at patient's floor/unit and/or counseling patient: Coding Level of Care Code 85661 IN/OBS CONSULT LVL 3,45M Diagnoses pelvic thrombophlebitis O87.1 Preeclampsia O14.90 S/P Z98.891
[2024-10-30] MEDS: ACETAMINOPHEN 325 MG TAB PO PRN (17:29)
[2024-10-30] MEDS: PRENATAL VITAMIN 1 TAB PO SCH (20:14)
[2024-10-30] MEDS: NIFEdipine EXTENDED REL 30 MG TABCR PO SCH (20:14)
[2024-10-30] MEDS: ONDANSETRON INJ 2 MG/ML 2 ML VIAL IV PRN (20:45)
[2024-10-30 21:49] LABS: ANTI-Xa, UFH(UnfractionatedHep < 0.10 IU/ml (0.3-0.7)
[2024-10-30] MEDS: HEPARIN SOD (PORCINE) 1000 UNIT/ML IV ONE (22:42)
[2024-10-31 04:31] LABS: ANTI-Xa, UFH(UnfractionatedHep 0.27 IU/ml (0.3-0.7)
--- NOTE | 2024-10-31 08:57 | Hospitalist Progress Note ---
Date of Service October 31, 2024 Assessment & Plan (1) pelvic thrombophlebitis: Plan: -CT a/p showed several of the largest collateral veins in the right hemipelvis are thrombosed with significant surrounding inflammation consistent with a thrombophlebitis. -pt not planning to breast feed -heparin drip started -morphine for pain control -will transition to DOAC upon d/c -OB-PEDIATRIC LICENSED PRACTICAL NURSE consult appreciated -pain slightly improved -will observe for any signs of bleeding and d/c home once pain resolves. (2) Preeclampsia: Plan: -BP uncontrol -will con't procardia Admission and Anticipated Discharge Date Admission Date: October 30, 2024 Subjective No events overnight. Pt states her pain is slightly improved. Review of Systems Review of Systems: CONST: Negative for fever, body aches and chills. HENT: Negative for neck pain/stiffness, headache, congestion, sore throat, swelling. EYES: Negative for discharge/pain or vision changes. RESP: Negative for cough/hemoptysis and shortness of breath. CV: Negative chest pain, difficulty breathing, palpitations. ABD: Negative pain, nausea, vomiting. : Negative increase frequency, dysuria, blood in urine or stool. MUSC: Negative for muscle aches, edema. SKIN: Negative rash, lesions/sores. NEURO: Negative headache, dizziness, weakness. Physical Exam Physical Exam: GENERAL APPEARANCE NAD, activity normal for age, well developed/ well nourished, no cyanosis, pallor, or diaphoresis. EYES lids/conjunctiva normal. EARS/NOSE/THROAT Mucous membranes moist, nares normal, lips/teeth normal uvula midline without oral pharyngeal erythema, exudate or swelling TMs normal bilaterally. No lymphangitis/lymphedema. HEAD/NECK normocephalic atraumatic, no facial trauma, neck is supple. RESPIRATORY respiratory effort normal, speaks in full sentences, no tripod position, no accessory muscle use. Lungs clear to auscultation without rhonchi, wheezes, rales CARDIAC Regular rate and rhythm, no edema. ABDOMINAL Soft, ND/NT. No evidence of fluid wave. No pulsatile masses on exam, rebound tenderness, Li sign or pain over Mcburney's point. MUSCLES/EXTREMITIES No abnormal range of motion, no swelling. SKIN Warm, pink and dry. No rashes, dermatoses, petechiae or lesions. NEUROLOGICAL Speech is clear and appropriate. Normal level of consciousness. Gait and coordination are normal. 5/5 strength in all extremities. PSYCH Normal mood and affect. Judgement/competence is appropriate Results & Data Results & Data Vital Signs (Past 12 Hours) Vital Signs Temp Pulse Resp BP Pulse Ox O2 Del Method 10/31/24 07:35 37.2 C 112 H 18 120/78 96 Room Air 10/30/24 22:30 36.5 C 76 18 111/70 94 Room Air PG Care Time/CCT Total # of Minutes Spent Total Time Spent with Patient: Total time spent is greater than 50% in coordination of care (as documented) at patient's floor/unit and/or counseling patient: Coding Level of Care Code 83871 SUB INP/OBS CARE 235MIN Diagnoses pelvic thrombophlebitis O87.1 Preeclampsia O14.90
--- NOTE | 2024-10-31 09:25 | Obstetrical Progress Note ---
Date of Service October 31, 2024 Assessment & Plan (1) pelvic thrombophlebitis: Plan: - Managed by medicine, appreciate their management (2) Preeclampsia: Plan: - Stable on nifedipine 30 daily - Preeclampsia labs within normal limits on admit, denies signs/symptoms of worsening preeclampsia (3) S/P : Plan: - Reports appropriate postoperative milestones/symptoms. Denies s/s infection, vs and labs w/o suggestion of this either - Can continue Tylenol, oxycodone for postoperative pain management -will continue to follow Admission and Anticipated Discharge Date Admission Date: October 30, 2024 Subjective Feels like pain in abdomen and back comes and goes. Vaginal bleeding stable from prior to heparin drip initiating. Denies s/s pre-eclampsia Physical Exam Respiratory: normal respiratory effort; no respiratory distress and no labored breathing Gastrointestinal (Abdomen): abd soft, appropriately tender, incision c/d/i Results & Data Vital Signs (Past 12 Hours) Vital Signs Temp Pulse Resp BP Pulse Ox O2 Del Method 10/31/24 07:35 99.0 F 112 H 18 120/78 96 Room Air 10/30/24 22:30 97.7 F 76 18 111/70 94 Room Air PG Care Time/CCT Total # of Minutes Spent Total Time Spent with Patient: Total time spent is greater than 50% in coordination of care (as documented) at patient's floor/unit and/or counseling patient: Coding Level of Care Code None Diagnoses pelvic thrombophlebitis O87.1 Preeclampsia O14.90 S/P Z98.891
[2024-10-31 11:17] LABS: ANTI-Xa, UFH(UnfractionatedHep 0.18 IU/ml (0.3-0.7)
[2024-10-31] MEDS: HEPARIN SOD (PORCINE) 1000 UNIT/ML IV ONE (12:12)
[2024-10-31] MEDS: POLYETHYLENE (MIRALAX) 17 GM PACK PO PRN (17:54)
[2024-10-31 19:04] LABS: ANTI-Xa, UFH(UnfractionatedHep 0.22 IU/ml (0.3-0.7)
[2024-11-01 02:02] LABS: ANTI-Xa, UFH(UnfractionatedHep 0.27 IU/ml (0.3-0.7)
[2024-11-01 07:48] VITALS: RESP 16; TEMP 98.2; O2SAT 94
--- NOTE | 2024-11-01 08:07 | Obstetrical Progress Note ---
Date of Service November 01, 2024 Assessment & Plan (1) pelvic thrombophlebitis: Plan: - Managed by medicine, appreciate their management (2) Preeclampsia: Plan: - Stable on nifedipine 30 daily - Preeclampsia labs within normal limits on admit, denies signs/symptoms of worsening preeclampsia (3) S/P : Plan: - Reports appropriate postoperative milestones/symptoms. Continue Tylenol, oxycodone for postoperative pain management -will continue to follow, defer to primary team for continued mgt/disposition Admission and Anticipated Discharge Date Admission Date: October 30, 2024 Subjective No abd pain, just mild back pain. Vaginal bleeding stable from prior to heparin drip initiating. Denies s/s pre-eclampsia Physical Exam Respiratory: normal respiratory effort; no respiratory distress and no labored breathing Gastrointestinal (Abdomen): Inspection/Auscultation: abdomen normal to inspection and + abdominal surgical scar (c/d/i); abdomen not distended Results & Data Vital Signs (Past 12 Hours) Vital Signs Temp Pulse Pulse Resp BP BP Pulse Ox 11/01/24 07:47 98.2 F 96 H 16 126/82 94 10/31/24 20:26 98.1 F 96 H 18 116/75 95 O2 Del Method 11/01/24 07:47 Room Air 10/31/24 20:26 Room Air PG Care Time/CCT Total # of Minutes Spent Total Time Spent with Patient: Total time spent is greater than 50% in coordination of care (as documented) at patient's floor/unit and/or counseling patient: Coding Level of Care Code None Diagnoses pelvic thrombophlebitis O87.1 Preeclampsia O14.90 S/P Z98.891
[2024-11-01 08:18] LABS: ANTI-Xa, UFH(UnfractionatedHep 0.31 IU/ml (0.3-0.7)
--- NOTE | 2024-11-01 10:19 | Discharge Summary ---
Discharge Summary Date of Service November 01, 2024 Principal Dx & Hospital Course #1 = Principal Diagnosis (1) pelvic thrombophlebitis: -CT a/p showed several of the largest collateral veins in the right hemipelvis are thrombosed with significant surrounding inflammation consistent with a thrombophlebitis. -pt not planning to breast feed -heparin drip started -morphine for pain control -will transition to DOAC upon d/c -[facility] consult appreciated -pain slightly improved -will observe for any signs of bleeding and d/c home once pain resolves. (2) Preeclampsia: -BP uncontrol -will con't procardia Admission HPI Per Admitting Provider Pt is a 34 y/o female with no significant pmh who is 2 weeks post from c- section who presents with abdominal/pack pain that has not been improving since her delivery. Pt does complain of nausea, denies any fever, or vaginal bleeding/discharge. Pt has h/o of kidney stones and was concerned that her pain my be due to them. In the ER patient had CT a/p which showed several of the largest collateral veins in the right hemipelvis are thrombosed with significant surrounding inflammation consistent with a thrombophlebitis. The case was discussed by ER with [facility] who recommended admission to medicine. Pt states she does not plan to breast feed and heparin drip was started in ER. Discharge Exam GENERAL APPEARANCE NAD, activity normal for age, well developed/ well nourished, no cyanosis, pallor, or diaphoresis. EYES lids/conjunctiva normal. EARS/NOSE/THROAT Mucous membranes moist, nares normal, lips/teeth normal uvula midline without oral pharyngeal erythema, exudate or swelling TMs normal bilaterally. No lymphangitis/lymphedema. HEAD/NECK normocephalic atraumatic, no facial trauma, neck is supple. RESPIRATORY respiratory effort normal, speaks in full sentences, no tripod position, no accessory muscle use. Lungs clear to auscultation without rhonchi, wheezes, rales CARDIAC Regular rate and rhythm, no edema. ABDOMINAL Soft, ND/NT. No evidence of fluid wave. No pulsatile masses on exam, rebound tenderness, Li sign or pain over Mcburney's point. MUSCLES/EXTREMITIES No abnormal range of motion, no swelling. SKIN Warm, pink and dry. No rashes, dermatoses, petechiae or lesions. NEUROLOGICAL Speech is clear and appropriate. Normal level of consciousness. Gait and coordination are normal. 5/5 strength in all extremities. PSYCH Normal mood and affect. Judgement/competence is appropriate Discharge Plan Discharge Items Patient Disposition: Home - Self-Care Reason For Visit: POST PELVIC THROMBOPLEBITIS Discharge Diagnosis: Post pelvic thromboplebitis Condition on Discharge: Fair Activity: Resume your previous activity Non-emergency contact: Primary Care Provider Call non-emergency contact if: you have any medication questions Follow-up/Referrals: PCP,NO [Primary Care Provider] - Diet: Regular Addtl Attending Provider Instructions: Follow up with PMD in 1 week Pending Studies at Discharge: No Stand-Alone Forms: [employer], Smoking Cessation Medications and DC Order Prescriptions: New Eliquis 5 mg (74 tabs) tablets,dose pack 5 mg PO BID Qty: 74 0RF Rx Instructions: take 2 tabs twice per day for 7 days, then take 1 tab twice per day each day after Continued 28-800 mg-mcg Tablet 1 tab PO HS nifedipine [Procardia XL] 30 mg Tablet Extended Release 24hr 30 mg PO HS Qty: 30 1RF oxycodone 5 mg Tablet 5 - 10 mg PO Q3H PRN (Reason: pain) Qty: 10 0RF Discharge Orders: Discharge Order (Routine); Ordered 11/01/24 Ordered By: Dominic Jung Admission Data Admit Date/Time: 10/30/24 13:29 Attending Provider: Dominic Jung Admit Provider: Dominic Jung Primary Care Provider: PCP,NO Other Providers: Dominic Jung; Yolanda Zuniga Hospital Stay Data Consultations 10/30/24 13:08 ED Decision to Admit Stat 10/30/24 13:20 Consult Obstetrics Routine Diagnostic Imagining Performed 10/30/24 10:10 CT abd pelvis IV con only Stat 10/30/24 14:18 US venous duplex leg [US venous doppler LE RT] Stat Pending Results Patient Have Any Pending Studies at Discharge: No Discharge Instructions Given to Patient (Per Discharging Provider) Follow up with PMD in 1 week Total Time Total Time Spent Total Time Spent (In Minutes): 50 Coding Level of Care Code 74040 INP/OBS DISCH >30 MIN Diagnoses pelvic thrombophlebitis O87.1 Preeclampsia O14.90
[2024-11-01 10:48] VITALS: BP 116/75; PULSE 88
[2024-11-01] MEDS: APIXABAN 5 MG TABLET PO SCH (11:00)
== END 2024-11-01 12:30 | disposition home or self-care (01) | DRG 776 ==
LOC: ED 09:50 → EDINP 13:29 → 3N 15:45